=== PATIENT | male | born 1955 | race Caucasian/White ===

== ENCOUNTER 2024-02-05 12:24 | Inpatient (IN) | payer MEDICARE, OTHER, SELFPAY ==
[2024-02-05] VITALS (55 sets, daily range): BP systolic 69–119; BP diastolic 41–71; PULSE 70–108; RESP 10–25; TEMP 36.6–37; O2SAT 92–100; BMI 40.6
--- NOTE | ~2024-02-05 | US_ITS ---
EXAMINATION: US venous doppler [facility] DATE: 02/06/2024 08:50 INDICATION: Acute pulmonary embolism. Epigastric abdominal pain. TECHNIQUE: Grayscale ultrasound images without and with compression and Doppler ultrasound images of the bilateral lower extremity veins were obtained. COMPARISON: None. FINDINGS: The visualized portions of right common femoral vein, profunda (deep) femoral vein, femoral vein, pop liteal vein, peroneal veins, posterior tibial veins, and greater saphenous vein outflow are patent. The visualized portions of left common femoral vein, profunda femoral vein, femoral vein, popliteal v ein, peroneal veins, posterior tibial veins, and greater saphenous vein outflow are patent. IMPRESSION: 1. No deep venous thrombosis. Reviewed, dictated and finalized at location A.
--- NOTE | ~2024-02-05 | CT_ITS ---
EXAMINATION: CT brain wo con DATE: 02/05/2024 13:31 INDICATION: Fall with head injury TECHNIQUE: Computed tomography (CT) of the head was performed without intravenous contrast. Sagittal and coronal reconstructions were performed. The mA was adjusted according to patient size. Iterative reconstruction technique was employed. The dose-length product was 605.33 mGy-cm. COMPARISON: head CT dated 06/01/2019 FINDINGS: No fracture. No acute intracranial hemorrhage, acute infarction or abnormal extra axial fluid collect ion. There is mild scattered white matter hypoattenuation consistent with chronic small vessel ischem ic disease. Symmetric prominence of the sulci and and subarachnoid spaces overlying the convexities c onsistent with mild to moderate age-appropriate diffuse cerebral volume loss. Ventricles are normal a nd symmetric. No mass/mass effect. The orbits, paranasal sinuses and mastoid air cells are normal. IMPRESSION: 1. No fracture or acute intracranial process. 2. Age-related changes including mild to moderate diffuse volume loss and mild scattered white matter hypoattenuation consistent with chronic small vessel ischemic disease. Reviewed, dictated and finalized at location A. IMPRESSION: 1. No fracture or acute intracranial process. 2. Age-related changes including mild to moderate diffuse volume loss and mild scattered white matter hypoattenuation consistent with chronic small vessel isc hemic disease.
--- NOTE | ~2024-02-05 | XR_ITS ---
EXAMINATION: XR chest 1V portable DATE: 02/05/2024 13:48 INDICATION: Epigastric abdominal pain. TECHNIQUE: A single frontal view of the chest was obtained on 2 radiographs. COMPARISON: Chest CT 02/05/2024 FINDINGS: There is mild elevation of right hemidiaphragm. No pneumonia, pleural effusion, or pneumoth orax. The heart size is normal. IMPRESSION: 1. No acute cardiopulmonary disease. Reviewed, dictated and finalized at location E.
--- NOTE | ~2024-02-05 | US_ITS ---
EXAMINATION: US renal BI DATE: 02/06/2024 16:45 INDICATION: Elevated creatinine TECHNIQUE: Multiple ultrasound grayscale images of the kidneys were obtained. COMPARISON: 06/02/2018 FINDINGS: The right kidney measures 9.7 x 5.9 x 5.3 cm. The left kidney measures 10.2 x 5.7 x 5.6 cm. The kidne ys demonstrate normal echogenicity. There is no hydronephrosis in either kidney. No stones identifie d. The bladder is normal. IMPRESSION: 1. Normal kidneys without hydronephrosis. Reviewed, dictated and finalized at location B.
--- NOTE | ~2024-02-05 | XR_ITS ---
EXAMINATION: XR chest port-a-cath/central DATE: 02/05/2024 19:29 INDICATION: Central line placement. TECHNIQUE: A single frontal view of the chest was obtained. COMPARISON: Chest view at 1:44 PM, chest CT 02/05/2024 FINDINGS: There is no pneumonia, pleural effusion, or pneumothorax. The heart size is normal. A right internal jugular central venous catheter is seen with tip in the superior vena cava. IMPRESSION: 1. Central line tip in the superior vena cava. Reviewed, dictated and finalized at location E.
--- NOTE | ~2024-02-05 | CT_ITS ---
EXAMINATION: CTA chest abdomen pelvis DATE: 02/05/2024 13:31 INDICATION: Undifferentiated hypotension. Epigastric pain. TECHNIQUE: Computed tomographic angiography (CTA) of the chest, abdomen and pelvis was performed with 100 cc of Omnipaque-350 intravenous contrast. Additional 3D reconstructions utilizing rotating maxim um intensity projection (MIP) were performed. Automated exposure control and iterative reconstruction technique were employed. The dose-length product was 1797.41 mGy-cm. COMPARISON: None FINDINGS: Chest: There is diffuse mild bronchial wall thickening with some mucous plugging in the bilateral lower lobe s. Branching bronchocele in the right middle lobe. Pulmonary embolism in the posterior basilar segmen nicole pulmonary artery of the left lower lobe. Dependent groundglass opacities in the bilateral upper a nd lower lobes, the latter with associated volume loss consistent with atelectasis. Heart size is nor mal. Atherosclerotic coronary artery calcific location. No leftward bowing of the ventricular septum to suggest heart strain. Thoracic aorta is normal in caliber with no dissection. No pathologically en larged thoracic lymphadenopathy. Mild to moderate thoracic spondylosis with bridging osteophytes at m ultiple levels consistent with diffuse idiopathic skeletal hyperostosis (DISH). Abdomen and pelvis: Cholecystectomy clips the gallbladder fossa. Liver, spleen, pancreas, bilateral adrenal glands and ki dneys are normal. There is moderate colonic diverticulosis with a sigmoid and descending colon predom inance without adjacent inflammatory change to suggest diverticulitis. Small bowel and appendix are n ormal. Supraumbilical midline surgical scar with several associated midline ventral hernias occur bot h cephalad and caudal to a prior ventral hernia mesh repair. One of the hernias located caudal to the mesh repair contains a short segment of nonobstructed small bowel. A small portion anterior wall of an additional loop of nonobstructed small bowel also extends to a tiny ventral hernia just to left of midline also below the level of the mesh repair. Remainder of the ventral hernias along with a small umbilical hernia containing fat. Bladder is normal. Bilateral small fat-containing inguinal hernias. No free intraperitoneal gas or fluid. No pathologically enlarged abdominal or pelvic lymphadenopathy . There is calcified atherosclerosis of the normal caliber abdominal aorta and many of the other aleta ade. No dissection. 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 This appears to occur from extrinsic compression from the hany of the diaphragm consistent wi th arcuate syndrome. Mild lumbar spondylosis and mild to moderate bilateral hip osteoarthritis. IMPRESSION: 1. Pulmonary embolism in the posterior basilar segmental pulmonary artery of the left lower lobe. Dr. Ovalles discussed these findings with Dr. Mckeon at 2:00 PM. 2. Normal caliber aorta with no dissection. 3. 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 4. Multiple small ventral hernias, several containing fat and a couple located caudal to ventral alison ia mesh repair containing small portions of nonobstructed small bowel. Reviewed, dictated and finalized at location A. IMPRESSION: 1. Pulmonary embolism in the posterior basilar segmental pulmonary artery of th e left lower lobe. Dr. Ovalles discussed these findings with Dr. Mckeon at 2:0 0 PM. 2. Normal caliber aorta with no dissection. 3. 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
[2024-02-05 12:30] LABS: Glucose Point of Care 348 mg/dl (65-105)
--- NOTE | 2024-02-05 12:52 | ECG_ITS ---
Test Date: 2024-02-05 12:55:53 Measurements Intervals [place] Rate: 105 P: 17 TN: 166 QRS: 56 QRSD: 102 T: 53 QT: 317 QTc: 419 Interpretive Statements SINUS TACHYCARDIA CONSIDER PREVIOUS INFERIOR WALL INFARCTION ABNORMAL RHYTHM ECG No previous ECG available for comparison Electronically Signed On 02-06-2024 07:15:18 CDT by Rasheed Perez M.D.
[2024-02-05] MEDS: SODIUM CHLORIDE 0.9% IV 1,000 ML 999 ML IV CONT ×3 (13:03→14:25)
[2024-02-05 13:09] LABS: Basophils Percent Auto 0.5 % (0.2-1.2); Eosinophils Absolute Auto 0.3 K/mm3 (0-0.3); Eosinophils Percent Auto 3.5 % (0-4.4); Hematocrit 44.1 % (42.0-52.0); Hemoglobin 14.5 g/dL (14.0-18.0); Immature Granulocyte Absolute 0.03 K/mm3 (0.00-0.031); Immature Granulocyte Percent A 0.4 % (0-0.5); Lymphocytes Absolute Auto 1.09 K/mm3 (0.9-3.2); Lymphocytes Percent Auto 13.8 % (18.3-44.2); Mean Corpuscular HGB Conc 32.9 g/dl (32-36); Mean Corpuscular Hemoglobin 29.8 pg (26-34); Mean Corpuscular Volume 90.6 fl (80-100); Mean Platelet Volume 10.1 fl (7.4-10.4); Monocytes Absolute Auto 0.6 K/mm3 (0.1-0.6); Monocytes Percent Auto 7.8 % (2.6-8.5); Neutrophils Absolute Auto 5.9 K/mm3 (1.3-6.7); Platelet Count Result 168 k/mm3 (150-375); Red Blood Count 4.87 M/mm3 (4.6-6.20); Red Cell Distribution Width 15.6 % (11.5-14.5); White Blood Count 7.9 K/mm3 (4.5-10.0)
[2024-02-05 13:20] LABS: Prothrombin Time 13.5 Seconds (11.1-14.7)
[2024-02-05 13:21] LABS: Alanine Aminotransferase 15 U/L (6-50); Albumin Level 4.7 g/dL (3.5-5.1); Alkaline Phosphatase 96 U/L (38-126); Anion Gap 15 mmol/L (4-12); Aspartate Amino Transferase 19 U/L (17-59); Bilirubin,Total 1.1 mg/dL (0.2-1.3); Blood Urea Nitrogen 39 mg/dL (9-20); Calcium 9.6 mg/dL (8.4-10.2); Carbon Dioxide 19 mmol/L (22-30); Chloride 102 mmol/L (98-107); Estimated CRCL calculation 38 ml/min; Estimated Glomerular Filt Rate 31; Glucose 318 mg/dL (65-110); Lipase 172 U/L (23-300); Potassium 3.9 mmol/L (3.4-5.0); Sodium 136 mmol/L (137-145)
[2024-02-05 13:21] LABS: Partial Thromboplastin Time 24.5 Seconds (22.3-36.8)
[2024-02-05 13:30] LABS: Troponin I < 0.012 ng/mL (0.000-0.034)
--- NOTE | 2024-02-05 13:30 | ED.GENADULT ---
HPI - General Adult General Chief complaint: Unspecified Stated complaint: im in a cloud Time Seen by Provider: 02/05/24 12:49 Source: patient and family () Mode of arrival: ambulatory Limitations: no limitations History of Present Illness HPI narrative: Patient presents with complaint that he felt in a cloud. He took 42 hemoglobins (RN thinks he meant Humalog) because his blood sugar this morning about 10 30 was 408. He denies any chest pain. He did have a syncopal event and fell while in the parking lot. not in any anticoagulation other than 81 mg aspirin. He is lost consciousness and muscle tone and struck his head in the process. He also hit his right elbow where he has an abrasion. He did report upon arrival to the emergency department that he is now complaining of some epigastric abdominal pain. He has a headache from striking his head. He has a history of hypertension for which he is on lisinopril and hydrochlorothiazide. Related Data Home Medications Medication Instructions Recorded Confirmed allopurinol 300 mg tablet 300 mg DAILY 02/05/24 02/06/24 aspirin 81 mg chewable tablet 81 mg PO DAILY 02/05/24 02/06/24 atorvastatin 40 mg tablet 40 mg HS 02/05/24 02/06/24 cyanocobalamin (vitamin B-12) 5,000 mcg PO DAILY 02/05/24 02/06/24 1,000 mcg tablet (Vitamin B-12) dapagliflozin propanediol 10 mg 10 mg DAILY 02/05/24 02/06/24 tablet (Farxiga) duloxetine 60 mg capsule,delayed 60 mg PO DAILY 02/05/24 02/06/24 release exenatide microspheres 2 mg/0.65 2 mg subcut WEEKLY 02/05/24 02/06/24 mL subcutaneous pen injector gabapentin 300 mg capsule 300 mg TID 02/05/24 02/06/24 hydrochlorothiazide 25 mg tablet 25 mg DAILY 02/05/24 02/06/24 insulin glargine-yfgn 100 unit/mL 30 unit subcut HS 02/05/24 02/06/24 (3 mL) subcutaneous pen (Semglee (insulin glargine-yfgn) Pen) insulin lispro 100 unit/mL See Rx Instructions .Route .COMPLEX 02/05/24 02/06/24 subcutaneous solution (Humalog U-100 Insulin) lisinopril 20 mg tablet 20 mg PO DAILY 02/05/24 02/06/24 metformin 500 mg tablet,extended 500 mg PO BID 02/05/24 02/06/24 release 24 hr tamsulosin 0.4 mg capsule 0.4 mg PO DAILY 02/05/24 02/06/24 Allergies Allergy/AdvReac Type Severity Reaction Status Date / Time celecoxib [From Celebrex] Allergy Intermediate Rash Verified 02/05/24 16:57 morphine AdvReac Unknown Agitated Verified 02/05/24 16:56 PMFSH Past Medical History Medical History Arthritis Cataracts, bilateral Chronic kidney disease Gout Hernia HLD (hyperlipidemia) HTN (hypertension) Insulin dependent diabetes mellitus Surgical History Surgical History History of cholecystectomy History of hernia surgery Family History Family History Mother Family history of Alzheimer's disease Family history of congestive heart failure Father Acute myocardial infarction Other Diabetes mellitus Family history of malignant neoplasm Hypertension Social History Social History Smoking packs per day: 2 Smoking cigarettes per day: 40.0 Years smoked: 25 Smoking pack-years: 50.00 Smoking status: Former smoker Tobacco type: cigarettes Smoking end date: 08/15/03 Alcohol intake: current Do You Feel Safe in your Home?: Yes Lack of Transportation: No Lack of Food: Never True Current Housing: I Have Housing Concerned About Future Housing: No Difficulty Paying Gas/Electric Bills: No Difficulty Paying for Meds: No Currently Unemployed: No Education: Associate Degree Difficulty w/ Childcare or Family Care: No Spiritual care concerns: No Exam Narrative: GENERAL: Well-appearing, well-nourished, and in no acute distress. HEAD: Normocephalic, atraumatic. EYES: Non injected, non icteric
[2024-02-05 14:17] LABS: Alveolar/Arterial O2 Gradient 25.9 mmHg; Base Excess ABG -7.8 mEq/l (+/-2.0); Fractional Inspired Oxygen 21 %; HCO3 ABG 17.1 mEq/l (22.0-26.0); Oxygen Content ABG 18.1 %vol (16.0-22.0); Oxygen Saturation ABG 95.7 % (95.0-100.0); Oxyhemoglobin 94.1 % THb (90.0-100.0); PCO2 ABG 33.4 mmHg (35.0-45.0); PO2 ABG 83.8 mmHg (80.0-100.0); PO2 FiO2 Ratio Arterial Blood 3.99 %; Total Hemoglobin 13.6 g/dL (12.0-18.0); pH ABG 7.327 (7.350-7.450)
[2024-02-05 14:18] LABS: Device ROOM AIR; Modified Allen's Test Pass; Site Drawn LEFT RADIAL
[2024-02-05 14:18] LABS: Beta-Hydroxybutyrate/Acetoacetate 0.14 mmol/L (0.02-0.27)
[2024-02-05 14:31] LABS: Glucose Point of Care 252 mg/dl (65-105)
[2024-02-05] MEDS: INSULIN HUMAN REGULAR (*BKC) 100 UNITS/ML 6 UNITS IV PUSH (14:36)
[2024-02-05 15:11] LABS: Procalcitonin 0.3 ng/mL
[2024-02-05 15:20] LABS: Appearance Urine Clear (Clear); Bacteria Urine None Seen /hpf; Bilirubin Urine Negative (Negative); Blood Urine Non-Hemolyzed Trace (Negative); Color Urine Yellow (Yellow); Glucose Urine UA 3+ mg/dL (Negative); Ketones Urine Negative (Negative); Leukocyte Esterase Ur Negative LEU/UL (Negative); Need Manual Microscopic Reviewed; Nitrate Urine Negative (Negative); Protein Urine Negative (Negative); Squamous Epithelial Cell Urine None Seen /hpf (Few); Urobilinogen Urine 0.2 mg/dL (<2.0); WBC Urine 0-5 /hpf (0-3)
[2024-02-05 15:24] LABS: Add Urine Microscopic? YES
[2024-02-05 15:39] LABS: Glucose Point of Care 191 mg/dl (65-105)
--- NOTE | 2024-02-05 15:49 | PM.IMHP ---
H&P: HPI History of Present Illness Date/Time: 02/05/24 15:49 Chief Complaint: Hyperglycemia, Fall Narrative: 68 y/o M presents here with hyperglycemia with PMH of DM, HTN, HLD, and CKD. The patient presents here from home for further evaluation of hyperglycemia and ground level fall. He reports his glucose checked this morning showed a sugar of 408, he self administered 42 units of Humalog at 10:30 a.m., and glucose upon arrival to the emergency department was 348. While coming into the emergency department he had a ground level fall in the parking lot. The patient reports that he had a syncopal event. He reports he was walking when he then woke up on the ground (face up). He reports loss of consciousness for less than 1 minute. 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 States he fell more so onto his right side/straight back and scraped his right elbow. Post fall has a mild headache that is described as occipital, dull, 5/10,nonradiating, constant, and has since resolved. Currently denying chest pain, shortness of breath, fever, body aches, chills, cough. Recently has had lisinopril reduced and HCTZ added. Endorses dyspnea with exertion that has been ongoing for the past 2 weeks, mild polyuria, mild polydipsia, clammy/diaphoretic (today during anabaptism while he was standing), and fatigue. No recent surgeries, no long car rides/travel, and he is a former smoker (25 years, 2 PPD, cessation 28 years ago). Initial VS at presentation: 97.9? F, HR 105, RR 20, 80/52, and 95% on RA. ED workup showed: No leukocytosis, no anemia, coags normal, pH 7.327, sodium 136, gap 15, creatinine 2.1 and GFR 31, POC initial glucose 348, initial troponin negative, beta hydroxy 0.14, and lactic acid 4.0. UA showed 3+ glucose and 3-5 RBC, otherwise unremarkable. CT head showed no acute findings and age related changes. CXR showed no acute cardiopulmonary disease. CTA of the chest/abdomen/pelvis showed AP involving the posterior basilar segmental pulmonary artery of the lower lobe, normal caliber aorta without dissection, stiff ear stenosis of the origin of the celiac access consistent with arcuate syndrome, and multiple small ventral hernias several containing fat and a couple containing nonobstructed small bowel. Review of Systems Review of Systems: All systems reviewed & are unremarkable except as noted in HPI and below [facility] Past Medical History Medical History (Updated 02/05/24 @ 21:17 by Fauzia Grace APRN) Arthritis Cataracts, bilateral Chronic kidney disease Gout Hernia HLD (hyperlipidemia) HTN (hypertension) Insulin dependent diabetes mellitus Surgical History Surgical History (Updated 02/05/24 @ 20:02 by Fauzia Grace APRN) History of cholecystectomy Family History Family History Mother Family history of Alzheimer's disease Family history of congestive heart failure Father Acute myocardial infarction Other Diabetes mellitus Family history of malignant neoplasm Hypertension Social History Social History Smoking packs per day: 2 Smoking cigarettes per day: 40.0 Years smoked: 25 Smoking pack-years: 50.00 Smoking status: Former smoker Tobacco type: cigarettes Smoking end date: 08/15/03 Alcohol intake: current Do You Feel Safe in your Home?: Yes Lack of Transportation: No Lack of Food: Never True Current Housing: I Have Housing Concerned About Future Housing: No Difficulty Paying Gas/Electric Bills: No Difficulty Paying for Meds: No Currently Unemployed: No Education: Associate Degree Difficulty w/ Childcare or Family Care: No Spiritual care concerns: No Meds Home Medications and Allergies Home Medications Medication Instructions Recorded Confirmed Type allopurinol 300 mg tablet 300 mg DAILY 02/05/24 02/05/24 History aspirin 81 mg chewable tablet 81 mg PO DAILY 02/05/24
[2024-02-05 16:06] LABS: Reflex Lactic Acid Yes or No Add Lactic
--- NOTE | 2024-02-05 16:23 | PC.NURSE ---
Tried to adjust patient's bedsheets and he states Im comfortable and like to coolness of the bed . Patient A&Ox4.
[2024-02-05 16:33] LABS: Anion Gap 8 mmol/L (4-12); Blood Urea Nitrogen 42 mg/dL (9-20); Calcium 8.8 mg/dL (8.4-10.2); Carbon Dioxide 22 mmol/L (22-30); Chloride 106 mmol/L (98-107); Estimated CRCL calculation 36 ml/min; Estimated Glomerular Filt Rate 30; Glucose 148 mg/dL (65-110); Potassium 4.4 mmol/L (3.4-5.0); Sodium 136 mmol/L (137-145)
[2024-02-05 17:45] LABS: Lactic Acid 1.8 mmol/L (0.7-2.0)
--- NOTE | 2024-02-05 18:15 | ADMGEN ---
This patient, Esteban Sultana, was admitted to Intensive Care Unit-8 at 1634. Patient/family oriented to hospital policies and general routines including ID bracelet, bed and alarms, visiting hours, pain management, procedures, bathroom and other care routines, personal items, smoking policy, room service/diet, and visiting hours. Information on how to activate the Rapid Response Team has been discussed. Patient/Family are encouraged to report perceived risks to care and to ask questions if they do not understand what they are told or what they should do.
[2024-02-05 19:43] LABS: MRSA (PCR) NOT DETECTED (NOT DETECTE)
--- NOTE | 2024-02-05 19:50 | ED.PROCEDURE ---
Procedures Central Line Placement Right IJ: Central Line Date: 02/05/24 Central Line Time: 19:50 Discussed w/ the patient/family/POA,the placement of a central venous catheter, including its clinical necessity/indication & associated potential risks, benifits and alternatives.: Yes The patient/family/POA understand(s) and acknowledge(s) the need to proceed with central venous catheter insertion as an important element of the patient's clinical management.: Yes Consent: I have discussed with the patient and/or surrogate, the non-emergent placement of a central venous catheter, including its clinical necessity/indication and associated potential risks and complications. The patient and/or surrogate understand(s) and acknowledge(s) the need to proceed with central venous catheter insertion as an important element of the patient's clinical management. Time Out Performed: Yes Patient Position: trendelenburg Patient placed on monitor/pulse ox: Yes Provider Prep: mask, sterile gown, sterile gloves, Max. sterile barrier precautions, cap and hand hygiene with conventional soap/water or alcohol based hand rub Central line prep: 2% Chlorhexidine scrub Local anesthesia used: lidocaine 1% Central line lumen inserted: triple Length (cm): 16 Depth of Insertion (cm): 16 Post Procedure: sutured in place, good blood return, all ports aspirated, flushed, capped, transparent dressing, antimicrobial product and securement product Post procedure x-ray: tip of catheter in good position and no pneumothorax seen Patient tolerated procedure: well Complications: none
[2024-02-05] MEDS: CENTRAL LINE FLUSH 10 ML IV PUSH (20:27)
[2024-02-05] MEDS: NOREPINEPHRINE 8 MG/D5W 250 ML 8 MG/250 ML BAG 9.38 MG IV CONT (20:30)
[2024-02-05 20:53] LABS: Troponin I < 0.012 ng/mL (0.000-0.034)
[2024-02-05] MEDS: LACTATED RINGERS 1,000 ML 999 ML IV CONT (21:33)
[2024-02-05] MEDS: HEPARIN SODIUM 5,000 UNITS/ML VIAL 7000 UNITS IV PUSH (22:29)
[2024-02-05] MEDS: HEPARIN SOD/D5W 100 UNITS/ML 25,000 UNITS/250 ML BAG 15 UNITS IV CONT (22:30)
[2024-02-05 22:51] LABS: Glucose Point of Care 219 mg/dl (65-105)
[2024-02-05] MEDS: SODIUM CHLORIDE 0.9% IV 1,000 ML 500 ML IV CONT (23:18)
[2024-02-06] VITALS (28 sets, daily range): BP systolic 82–138; BP diastolic 53–88; PULSE 75–111; RESP 13–97; TEMP 36.9–37.1; O2SAT 92–99; BMI 41.5
--- NOTE | 2024-02-06 | ECHO_ITS ---
Patient Info Name: Esteban Sultana Age: 68 years : 1955 Gender: Male Ht: 68 in Wt: 264 lbs BSA: 2.45 m2 HR: 77 bpm BP: 114 / 59 mmHg Heart Rhythm: Sinus Rhythm Technical Quality: Fair Exam Date: 02/06/2024 9:09 AM Exam Location: Echo Lab Patient Status: Inpatient Admit Date: 02/05/2024 Staff Ordering Physician: Fauzia Grace APRN Conduit Helper: Ro Sparrow RDCS Attending Provider: Vinicio Mendoza MD Referring Physician: Lesly LONGORIA; Exam Type: CA echo dop color flow w con Study Info Indications I26.99 - Other pulmonary embolism without acute cor pulmonale Complete two-dimensional, color flow and Doppler transthoracic echocardiogram is performed with contrast to opacify the left ventricle and to improve the deliniation of the left ventricle endocardial borders. Contrast/Agitated Saline Contrast/Ag. Saline: Definity Amount: 2.00 ml IV Access Condition: patent with no signs of infiltration Summary 1. Left ventricular chamber dimension is normal. 2. Left ventricular systolic function is normal, estimated at 60-65%. 3. The left ventricular diastolic function is grade I diastolic dysfunction. 4. Right ventricular systolic function is normal. 5. There is mild tricuspid valve regurgitation. Left Ventricle Left ventricular chamber dimension is normal. Left ventricular systolic function is normal, estimated at 60-65%. There is no increased left ventricular wall thickness. The left ventricular diastolic function is grade I diastolic dysfunction. Right Ventricle Right ventricular chamber dimension is normal. Right ventricular systolic function is normal. Left Atria Left atrial chamber dimension is normal. Right Atria Right atrial chamber dimension is normal. Atrial Septum Intact interatrial septum visualized by color flow imaging. Aortic Valve The aortic valve is probable trileaflet. There is no aortic valve stenosis. There is no aortic valve regurgitation. There is mild aortic valve calcification. Pulmonic Valve The pulmonic valve is not well visualized. There is no pulmonic regurgitation. Mitral Valve The mitral valve has normal leaflets. There is trace mitral valve regurgitation. The mitral valve annulus is mildly calcified. Tricuspid Valve There is mild tricuspid valve regurgitation. Pericardium/Pleural The pericardium appears epicardial fat pad. There is no pericardial effusion. Inferior Vena Cava Normal inferior vena cava with >50% collapse upon inspiration consistent with normal right atrial pressure, 3 mmHg. Aorta The aortic root size at the sinus of Valsalva is normal. Left Ventricular Outflow Tract Name Value Normal LVOT 2D LVOT Diameter 1.95 cm LVOT Doppler LVOT Peak Gradient 5 mmHg LVOT Mean Gradient 3 mmHg LVOT VTI 20.61 cm LVOT VTI/AV VTI Ratio 0.60 LVOT Stroke Volume 61.66 ml LVOT CO 4.97 l/min LVOT CI 2.03 L/min/m2 Pulmonic Valve
[2024-02-06 01:05] LABS: Glucose Point of Care 185 mg/dl (65-105)
[2024-02-06] MEDS: SODIUM CHLORIDE 0.9% IV 1,000 ML 100 ML IV CONT (01:18)
[2024-02-06] MEDS: CENTRAL LINE FLUSH 10 ML IV PUSH ×3 (03:40→19:50)
[2024-02-06 03:52] LABS: Basophils Percent Auto 0.3 % (0.2-1.2); Eosinophils Absolute Auto 0.2 K/mm3 (0-0.3); Eosinophils Percent Auto 4.2 % (0-4.4); Hematocrit 36.3 % (42.0-52.0); Hemoglobin 11.8 g/dL (14.0-18.0); Immature Granulocyte Absolute 0.01 K/mm3 (0.00-0.031); Immature Granulocyte Percent A 0.2 % (0-0.5); Lymphocytes Absolute Auto 1.05 K/mm3 (0.9-3.2); Lymphocytes Percent Auto 18.2 % (18.3-44.2); Mean Corpuscular HGB Conc 32.5 g/dl (32-36); Mean Corpuscular Hemoglobin 29.9 pg (26-34); Mean Corpuscular Volume 92.1 fl (80-100); Mean Platelet Volume 9.9 fl (7.4-10.4); Monocytes Absolute Auto 0.5 K/mm3 (0.1-0.6); Neutrophils Percent Auto 69.1 % (45.5-73.1); Platelet Count Result 102 k/mm3 (150-375); Red Blood Count 3.94 M/mm3 (4.6-6.20); Red Cell Distribution Width 15.7 % (11.5-14.5); White Blood Count 5.8 K/mm3 (4.5-10.0)
[2024-02-06] MEDS: AZITHROMYCIN 500 MG/NS 250 ML 500 MG/250 ML BAG 250 MG IVPB (03:57)
[2024-02-06 03:59] LABS: Hemoglobin A1C 9.6 % (<5.7)
[2024-02-06 04:03] LABS: INR 1.1; Prothrombin Time 14.9 Seconds (11.1-14.7)
[2024-02-06 04:04] LABS: Alanine Aminotransferase 10 U/L (6-50); Albumin Level 3.3 g/dL (3.5-5.1); Alkaline Phosphatase 82 U/L (38-126); Anion Gap 8 mmol/L (4-12); Aspartate Amino Transferase 16 U/L (17-59); Bilirubin,Total 0.9 mg/dL (0.2-1.3); Blood Urea Nitrogen 40 mg/dL (9-20); Calcium 8.2 mg/dL (8.4-10.2); Carbon Dioxide 19 mmol/L (22-30); Chloride 109 mmol/L (98-107); Estimated CRCL calculation 41 ml/min; Estimated Glomerular Filt Rate 33; Glucose 192 mg/dL (65-110); Magnesium 1.9 mg/dL (1.6-2.3); Partial Thromboplastin Time 111.7 Seconds (22.3-36.8); Phosphorus 3.9 mg/dL (2.5-4.5); Potassium 3.9 mmol/L (3.4-5.0); Sodium 136 mmol/L (137-145)
[2024-02-06 05:16] LABS: Glucose Point of Care 187 mg/dl (65-105)
--- NOTE | 2024-02-06 08:26 | WPDCNINT ---
Assessment and Plan Assessment and plan (1) Hypotension: Code(s): I95.9 - Hypotension, unspecified Status: Acute Assessment and Plan: Patient on presentation was found to be hypotensive with elevated lactic acid level. He was given IV fluids without significant improvement. He had no obvious source of infection at that time apart from minor changes in the CT scan. CT scan also showed a pulmonary embolism which was small. During my discussion with the ER physician it was decided that we will administer tPA unless there was a contraindication and if patient understood the risks and benefits of it. Since patient was on Levophed decision was made to place central venous catheter before administration of tPA. Later ER physician reassessed the patient and felt the patient was hypovolemic has decision was made to give additional fluids and withhold tPA. I was not notified of these changes or was involved this discussion. Patient did improve with IV fluids and Levophed was weaned off overnight. On CT scan pulmonary embolism does appear small and is only in posterior basilar segment pulmonary artery at the left lower lobe. Patient also is on room air and not significantly tachycardia or hypoxic. Lactic acid level has normalized At this point will continue Levophed titration, I will hold further IV fluids as patient has received close to 5 L of IV fluids prevent further volume overload. Heparin infusion will be continue. Echo will be checked. Continue antibiotics as below (2) Pulmonary embolism: Qualifiers: Acute cor pulmonale presence: unspecified Chronicity: acute Pulmonary embolism type: unspecified Qualified Code(s): I26.99 - Other pulmonary embolism without acute cor pulmonale Code(s): I26.99 - Other pulmonary embolism without acute cor pulmonale Status: Acute Assessment and Plan: Continue heparin infusion Check echo Lower extremity Dopplers ordered and pending (3) Sepsis: Code(s): A41.9 - Sepsis, unspecified organism Status: Acute Assessment and Plan: On presentation patient met criteria for sepsis. No evidence of source of overwhelming infection. UA was negative, procalcitonin was on the lower side and WBC was normal. Chest CT does suggest area of mild bronchial wall thickening with some mucus plugging in bilateral lower lobes. 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 Appears to be asymptomatic at this time as patient denies any abdominal pain related to it. Discussed results with the patient and recommended follow-up as an outpatient and referral for General surgery (5) Diabetes mellitus with hyperglycemia: Qualifiers: Diabetes mellitus terminal manager insulin use: with fpc use Diabetes mellitus type: type 2 Qualified Code(s): E11.65 - Type 2 diabetes mellitus with hyperglycemia; Z79.4 - oysterman (current) use of insulin Code(s): E11.65 - Type 2 diabetes mellitus with hyperglycemia Status: Acute Assessment and Plan: Patient presented with elevated blood sugars. His beta hydroxybutyrate was normal. It appears that his diabetes is poorly controlled from history high blood sugars at home. Blood glucose improved with IV fluids insulin Resume diabetic diet Poorly controlled diabetes Consult para educator and dietitian Resume Lantus at 35 units. Continue sliding scale Adjust accordingly (6) Elevated serum creatinine: Code(s): R79.89 - Other specified abnormal findings of blood chemistry Status: Acute Assessment and Plan: Patient presented
[2024-02-06] MEDS: INSULIN GLARGINE (*BKC) 100 UNITS/ML 35 UNITS SUB-Q (09:00)
[2024-02-06] MEDS: ASPIRIN 81 MG ENTERIC TABLET PO (09:00)
[2024-02-06] MEDS: ATORVASTATIN 40 MG TABLET PO (09:00)
[2024-02-06] MEDS: INSULIN ASPART (*BKC) 100 UNITS/ML SUB-Q ×4 (09:00→16:45)
[2024-02-06] MEDS: PANTOPRAZOLE SODIUM IV 40 MG VIAL IV PUSH (09:00)
[2024-02-06] MEDS: TAMSULOSIN HCL 0.4 MG CAPSULE PO (09:00)
[2024-02-06 09:07] LABS: Creatine Kinase 142 U/L (55-170)
[2024-02-06 09:13] LABS: Glucose Point of Care 239 mg/dl (65-105)
[2024-02-06 09:29] LABS: Creatinine Urine 100.6 mg/dL
[2024-02-06 09:35] LABS: Sodium Urine Random 80 meq/L
[2024-02-06 10:59] LABS: Partial Thromboplastin Time 61.6 Seconds (22.3-36.8)
[2024-02-06] MEDS: PERFLUTREN LIPID MICROSPHERES 1.5 ML VIAL DILUTED TO 10 ML TOTAL VOLUME IV PUSH (11:04)
--- NOTE | 2024-02-06 11:05 | IVDEFINITY ---
Prior to administration of IV Definity the patient was educated on the risks and benefits of the imaging enhancing agent including potential adverse side effects. The patient verbalized understanding. Allergies were verified. No exclusion criteria were identified and at least one of the following inclusion criteria were met: 1) physician request, 2) patient technically difficult to image (per the [place] [employer] guidelines of two or more segments not discernable within the apical view), or 3) questionable left ventricular function. ?
[2024-02-06] MEDS: HEPARIN SODIUM 5,000 UNITS/ML VIAL 3500 UNITS IV PUSH (11:13)
--- NOTE | 2024-02-06 11:44 | PCDIET ---
Physician consult for DM. See Nutritional Teaching Intervention.
--- NOTE | 2024-02-06 11:45 | PM.CNNEP ---
Assessment and Plan Assessment and plan (1) Chronic kidney disease: Qualifiers: Chronic kidney disease stage: unspecified stage Qualified Code(s): N18.9 - Chronic kidney disease, unspecified Code(s): N18.9 - Chronic kidney disease, unspecified Status: Chronic Assessment and Plan: The patient has chronic kidney disease. His creatinine is around 2. This has stayed relatively stable during the hospital stay. Most likely his CKD is from hypertension and diabetes. He also has hyperlipidemia and so could have some vascular disease in the kidneys as well. He does have untreated sleep apnea which could affect the kidneys as well. he received contrast as well. So far he still seem to be making urine. rhabdomyolysis could always be occurring. Will check a CK. Obstruction could always be occuring as well. Will check an ultrasound There other causes of kidney disease as well including glomerulonephritis, interstitial nephritis, vascular disease but I think these are all less likely. To evaluate this will get renal ultrasound, urine electrolytes, CPK will try to get some records from his primary care doctor (2) Diabetes mellitus with hyperglycemia: Qualifiers: Diabetes mellitus ad terminal makeup operator insulin use: with ad terminal makeup operator use Diabetes mellitus type: type 2 Qualified Code(s): E11.65 - Type 2 diabetes mellitus with hyperglycemia; Z79.4 - care home (current) use of insulin Code(s): E11.65 - Type 2 diabetes mellitus with hyperglycemia Status: Acute Assessment and Plan: on insulin and Accu-Cheks. Per hospitalist. (3) Pulmonary embolism: Qualifiers: Acute cor pulmonale presence: unspecified Chronicity: acute Pulmonary embolism type: unspecified Qualified Code(s): I26.99 - Other pulmonary embolism without acute cor pulmonale Code(s): I26.99 - Other pulmonary embolism without acute cor pulmonale Status: Acute Assessment and Plan: He is on anticoagulants (4) HTN (hypertension): Code(s): I10 - Essential (primary) hypertension Status: Acute Assessment and Plan: blood pressure is too low for blood pressure medication right now. (5) Hypotension: Code(s): I95.9 - Hypotension, unspecified Status: Acute Assessment and Plan: He received IV fluids. Blood pressure is doing better History of Present Illness Reason for Consult Consult date: 02/06/24 Chief Complaint Chief complaint: PE with Hypotension History of Present Illness Narrative: Esteban is a very pleasant 68-year-old gentleman who has multiple medical problems including hypertension, diabetes, high body mass index, sleep apnea but does not use a machine, chronic kidney disease, arthritis, gout, hyperlipidemia. The patient came in the hospital because he fell. He says he fainted. He woke up on the ground. His sugar was very high at 408. He had been at his grand Children's baseball games on Tuesday and Tuesday. The patient was seen in the emergency room. He had low blood pressure. He was felt to be dry. The patient had a CT angio of the chest which showed pulmonary emboli. He had thrombolytics therapy and is currently on heparin. Patient's hemodynamics improved. His creatinine was high on admission and remained high in spite of improved blood pressure in fluids so renal consultation was requested. The patient did receive contrast with that CT scan. He says that he has known about chronic kidney disease since November. He does not know how long he has had but was told it was chronic then. He sees Dr. Jewell for endocrinology who mentioned this. He placed him on [facility] at that point. He denies any bloody foamy cloudy or smelly urine. No kidney stones or bladder infections. No painful urination. Review of Systems Constitutional: Constitutional: Reports no additional constitutional complaints Eyes: Eyes: Reports
[2024-02-06 11:50] LABS: Glucose Point of Care 269 mg/dl (65-105)
--- NOTE | 2024-02-06 12:54 | PM.IMPN ---
Progress Note: A&P Assessment and Plan (1) Hypotension: Code(s): I95.9 - Hypotension, unspecified Status: Acute Assessment and Plan: Patient on presentation was found to be hypotensive with elevated lactic acid level. Given IV fluids without significant improvement. He had no obvious source of infection but CT scan also showed a pulmonary embolism which was small. Central line placed and Levophed started Initial plan was to administer tPA but decided that patient was hypovolemic as cause of the HoTN so more fluids administered. Suspect hypovolemia related to HCTZ, hyperglycemia with osmotic diuresis. Lactic acid level wsa 4 but now has normalized Weaned off Levophed. Monitor BP closely. Lisinopril, HCTZ remain on hold (2) Pulmonary embolism: Qualifiers: Acute cor pulmonale presence: unspecified Chronicity: acute Pulmonary embolism type: unspecified Qualified Code(s): I26.99 - Other pulmonary embolism without acute cor pulmonale Code(s): I26.99 - Other pulmonary embolism without acute cor pulmonale Status: Acute Assessment and Plan: CTA chest showing PE posterior basilar segmental pulmonary artery LLL. Started on a heparin infusion. Echo ordered. LE venous doppler negative. Contineu Heparin drip. Change to Elquis in the morning if remains stable (3) Sepsis: Code(s): A41.9 - Sepsis, unspecified organism Status: Acute Assessment and Plan: On presentation patient met criteria for sepsis vs SIRS. No evidence of source of overwhelming infection. UA was negative. WBC was normal. PCT 0.3. Chest CT does suggest area of mild bronchial wall thickening with some mucus plugging in bilateral lower lobes so consider PNA. 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 Appears to be asymptomatic at this time as patient denies any symptoms related to it. Patient made aware. Plan for patient to follow-up as an outpatient and referral for General surgery or vascular (5) Diabetes mellitus with hyperglycemia: Qualifiers: Diabetes mellitus laborer marine terminal insulin use: with laborer marine terminal use Diabetes mellitus type: type 2 Qualified Code(s): E11.65 - Type 2 diabetes mellitus with hyperglycemia; Z79.4 - laborer marine terminal (current) use of insulin Code(s): E11.65 - Type 2 diabetes mellitus with hyperglycemia Status: Acute Assessment and Plan: Patient presented with elevated blood sugars. His beta hydroxybutyrate was normal. A1c 9.6 showing his diabetes is poorly controlled from history high blood sugars at home. Blood glucose improved with IV fluids and insulin Continue diabetic diet Consult cyber incident analyst and dietitian Resume Lantus. Continue sliding scale Adjust accordingly (6) Elevated serum creatinine: Code(s): R79.89 - Other specified abnormal findings of blood chemistry Status: Acute Assessment and Plan: Patient presented with creatinine of 2.1. Baseline creatinine is unknown CT scan does not show any stones or hydronephrosis Check CK and urine electrolytes Monitor urine output electrolytes and creatinine Consult nephrology (7) HTN (hypertension): Code(s): I10 - Essential (primary) hypertension Status: Acute Assessment and Plan: Antihypertensive on hold due to hypotension Continue to monitr (8) Dehydration: Code(s): E86.0 - Dehydration Status: Acute Assessment and Plan: Improved with IV fluids. Diabetic diet resumed Hold further IV fluids to prevent volume overload Plan DVT prophylaxis -heparin infusi
[2024-02-06 13:50] LABS: Creatine Kinase 230 U/L (55-170)
[2024-02-06 13:59] LABS: Complement C3 140 mg/dL (88-165)
[2024-02-06 14:02] LABS: Parathyroid Intact 148.9 pg/mL (7.5-53.5)
[2024-02-06 14:22] LABS: Erythrocyte Sedimentation Rate 19 mm/hr (0-20)
[2024-02-06] MEDS: HEPARIN SOD/D5W 100 UNITS/ML 25,000 UNITS/250 ML BAG 15 UNITS IV CONT (16:41)
[2024-02-06 16:52] LABS: Glucose Point of Care 310 mg/dl (65-105)
[2024-02-06 17:53] LABS: Partial Thromboplastin Time 115.6 Seconds (22.3-36.8)
[2024-02-06 18:01] LABS: Creatinine Urine 120.8 mg/dL; Total Protein Urine Random 6 mg/dL; Ur Ttl Prot Creatinine Ratio 0.05 mg/mg (0-0.20); Urea Random Urine 522 MG/DL
[2024-02-06 18:03] LABS: Sodium Urine Random 43 meq/L
[2024-02-06 20:16] LABS: Glucose Point of Care 233 mg/dl (65-105)
[2024-02-07] VITALS (8 sets, daily range): BP systolic 101–142; BP diastolic 58–96; PULSE 70–93; RESP 11–20; TEMP 36.8–37.1; O2SAT 95–98
[2024-02-07 00:33] LABS: Partial Thromboplastin Time 185.1 Seconds (22.3-36.8)
[2024-02-07] MEDS: AZITHROMYCIN 500 MG/NS 250 ML 500 MG/250 ML BAG 250 MG IVPB (04:22)
[2024-02-07] MEDS: CENTRAL LINE FLUSH 10 ML IV PUSH (04:24)
[2024-02-07 04:37] LABS: Hematocrit 34.2 % (42.0-52.0); Hemoglobin 11.2 g/dL (14.0-18.0); Immature Platelet Fraction Pct 1.6 % (0.9-11.2); Mean Corpuscular HGB Conc 32.7 g/dl (32-36); Mean Corpuscular Hemoglobin 30.3 pg (26-34); Mean Corpuscular Volume 92.4 fl (80-100); Mean Platelet Volume 9.7 fl (7.4-10.4); Platelet Count Result 101 k/mm3 (150-375); Red Cell Distribution Width 15.8 % (11.5-14.5); White Blood Count 4.9 K/mm3 (4.5-10.0)
[2024-02-07 04:48] LABS: Alanine Aminotransferase 10 U/L (6-50); Albumin Level 3.2 g/dL (3.5-5.1); Alkaline Phosphatase 81 U/L (38-126); Anion Gap 4 mmol/L (4-12); Aspartate Amino Transferase 18 U/L (17-59); Bilirubin,Total 0.5 mg/dL (0.2-1.3); Blood Urea Nitrogen 36 mg/dL (9-20); Calcium 8.4 mg/dL (8.4-10.2); Carbon Dioxide 22 mmol/L (22-30); Chloride 110 mmol/L (98-107); Estimated CRCL calculation 48 ml/min; Estimated Glomerular Filt Rate 40; Glucose 187 mg/dL (65-110); Magnesium 2.1 mg/dL (1.6-2.3); Phosphorus 3.3 mg/dL (2.5-4.5); Sodium 136 mmol/L (137-145)
--- NOTE | 2024-02-07 07:58 | PM.PNNEP ---
Progress Note: A&P Assessment and Plan (1) Chronic kidney disease: Qualifiers: Chronic kidney disease stage: unspecified stage Qualified Code(s): N18.9 - Chronic kidney disease, unspecified Code(s): N18.9 - Chronic kidney disease, unspecified Status: Chronic Assessment and Plan: The patient has chronic kidney disease. His creatinine is around 2. This has stayed relatively stable during the hospital stay. Most likely his CKD is from hypertension and diabetes. He also has hyperlipidemia and so could have some vascular disease in the kidneys as well. He does have untreated sleep apnea which could affect the kidneys as well. he received contrast as well. So far he still seems to be making urine. CPK is okay. Ultrasound is unremarkable fractional excretion of urea shows dehydration. Most likely he has an element of chronic kidney disease and may or may not have an element of acute kidney injury. He is getting some IV fluids. His blood pressure is better. (2) Diabetes mellitus with hyperglycemia: Qualifiers: Diabetes mellitus half-way insulin use: with half-way use Diabetes mellitus type: type 2 Qualified Code(s): E11.65 - Type 2 diabetes mellitus with hyperglycemia; Z79.4 - prison (current) use of insulin Code(s): E11.65 - Type 2 diabetes mellitus with hyperglycemia Status: Acute Assessment and Plan: on insulin and Accu-Cheks. Per hospitalist. (3) Pulmonary embolism: Qualifiers: Acute cor pulmonale presence: unspecified Chronicity: acute Pulmonary embolism type: unspecified Qualified Code(s): I26.99 - Other pulmonary embolism without acute cor pulmonale Code(s): I26.99 - Other pulmonary embolism without acute cor pulmonale Status: Acute Assessment and Plan: He is on anticoagulants (4) HTN (hypertension): Code(s): I10 - Essential (primary) hypertension Status: Acute Assessment and Plan: blood pressure is too low for blood pressure medication right now. (5) Hypotension: Code(s): I95.9 - Hypotension, unspecified Status: Acute Assessment and Plan: He received IV fluids. Blood pressure is doing better Subjective Date/time seen: 02/07/24 07:58 Interval history: patient feels okay. No chest pain or shortness of Review of Systems Cardiovascular: Cardiovascular: Reports no additional cardiovascular complaints Respiratory: Respiratory: Reports no additional respiratory complaints Gastrointestinal: Gastrointestinal: Reports no additional gastrointestinal complaints Genitourinary: Genitourinary: Reports no additional male genitourinary complaints Exam Narrative: WDWN in NAD skin no rash head ncat lungs clear cor reg no rub abd BS+ nontender and soft ext 1+ bilateral edema. Objective Data Vital Signs Vital Signs: Vital Signs - 24 hr 02/06/24 08:00 02/06/24 08:00 02/06/24 08:00 Temperature 98.5 F Pulse Rate 86 80 81 Respiratory Rate 97 H Blood Pressure 118/75 118/75 Pulse Oximetry 97 Oxygen Delivery 02/06/24 10:00 02/06/24 08:00 02/06/24 10:00 Temperature Pulse Rate 87 86 92 Respiratory Rate 15 Blood Pressure 138/59 L Pulse Oximetry 96 Oxygen Delivery Room Air 02/06/24 10:00 02/06/24 12:00 02/06/24 12:00 Temperature 98.5 F Pulse Rate 86 111 H 92 Respiratory Rate 14 15 Blood Pressure 138/59 L 122/65 Pulse Oximetry 95 96 Oxygen Delivery 02/06/24 14:00 02/06/24 14:00 02/06/24 12:00 Temperature Pulse Rate 93 93 94 Respiratory Rate 17 18 Blood Pressure 115/55 L Pulse Oximetry 95 95 Oxygen Delivery Room Air 02/06/24 16:00 02/06/24 16:00 02/06/24 16:00 Temperature 98.6 F Pulse Rate 87 87 89 Respiratory Rate 19 16 Blood Pressure 106/59 L Pulse Oximetry 94 93 Oxygen Delivery Room Air 02/06/24 12:00 02/06/24 14:00 02/06/24 16:00 Temperature Pulse Rate
[2024-02-07 08:02] LABS: Glucose Point of Care 191 mg/dl (65-105)
[2024-02-07] MEDS: TAMSULOSIN HCL 0.4 MG CAPSULE PO (08:05)
[2024-02-07] MEDS: ASPIRIN 81 MG ENTERIC TABLET PO (08:05)
[2024-02-07] MEDS: ATORVASTATIN 40 MG TABLET PO (08:05)
[2024-02-07] MEDS: INSULIN GLARGINE (*BKC) 100 UNITS/ML 40 UNITS SUB-Q (08:06)
[2024-02-07] MEDS: INSULIN ASPART (*BKC) 100 UNITS/ML 10 UNITS SUB-Q ×2 (08:06→11:21)
--- NOTE | 2024-02-07 08:13 | WPDINTPN ---
Progress Note: A&P Assessment and Plan (1) Hypotension: Code(s): I95.9 - Hypotension, unspecified Status: Acute Assessment and Plan: Patient on presentation was found to be hypotensive with elevated lactic acid level. He was given IV fluids without significant improvement. He had no obvious source of infection at that time apart from minor changes in the CT scan. CT scan also showed a pulmonary embolism which was small. During my discussion with the ER physician it was decided that we will administer tPA unless there was a contraindication and if patient understood the risks and benefits of it. Since patient was on Levophed decision was made to place central venous catheter before administration of tPA. Later ER physician reassessed the patient and felt the patient was hypovolemic has decision was made to give additional fluids and withhold tPA. I was not notified of these changes or was involved this discussion. Patient did improve with IV fluids and Levophed was weaned off overnight. On CT scan pulmonary embolism does appear small and is only in posterior basilar segment pulmonary artery at the left lower lobe. Patient also is on room air and not significantly tachycardia or hypoxic. Lactic acid level has normalized At this point will continue Levophed titration, I will hold further IV fluids as patient has received close to 5 L of IV fluids prevent further volume overload. Heparin infusion will be continue. Echo will be checked. Continue antibiotics as below 6/25 Levophed as now being weaned off since yesterday is now off of IV fluids and improved. Monitor (2) Pulmonary embolism: Qualifiers: Acute cor pulmonale presence: unspecified Chronicity: acute Pulmonary embolism type: unspecified Qualified Code(s): I26.99 - Other pulmonary embolism without acute cor pulmonale Code(s): I26.99 - Other pulmonary embolism without acute cor pulmonale Status: Acute Assessment and Plan: Continue heparin infusion Pending echo Lower extremity Dopplers negative Will defer transition to p.o. anticoagulation to internal medicine physician (3) Sepsis: Code(s): A41.9 - Sepsis, unspecified organism Status: Acute Assessment and Plan: On presentation patient met criteria for sepsis. No evidence of source of overwhelming infection. UA was negative, procalcitonin was on the lower side and WBC was normal. Chest CT does suggest area of mild bronchial wall thickening with some mucus plugging in bilateral lower lobes. 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 Appears to be asymptomatic at this time as patient denies any abdominal pain related to it. Discussed results with the patient and recommended follow-up as an outpatient and referral for General surgery (5) Diabetes mellitus with hyperglycemia: Qualifiers: Diabetes mellitus correction insulin use: with correction use Diabetes mellitus type: type 2 Qualified Code(s): E11.65 - Type 2 diabetes mellitus with hyperglycemia; Z79.4 - production line manager (current) use of insulin Code(s): E11.65 - Type 2 diabetes mellitus with hyperglycemia Status: Acute Assessment and Plan: Patient presented with elevated blood sugars. His beta hydroxybutyrate was normal. It appears that his diabetes is poorly controlled from history high blood sugars at home. Blood glucose improved with IV fluids and insulin Continue diabetic diet Poorly controlled diabetes at baseline Consulted certified diabetes educator and dietitian Increased Lantus at 40 units. Increased with meal insulin
[2024-02-07 08:15] LABS: Partial Thromboplastin Time 121.8 Seconds (22.3-36.8)
--- NOTE | 2024-02-07 10:38 | PCFNICU ---
ICU Rounding Note: Pt current nutrition is DBCC. Last recorded weight is 122.8 kg, down from 124.2 kg on admit. Bowel Motility: +Bm reported 02/05 Labs Reviewed:Glu 187, Cr 1.7,GFR 40, Alb 3.2,Hct 34.2,Hgb 11.2,Na 136 Meds Noted: Lantus, NovoLog Skin: WNL Additional Notes: Patient remains on a DBCC diet. Intake has been good, 100% of meals. Patient has been educated on diet. No further nutritional interventions needed at this time. Following daily in ICU rounds.
[2024-02-07 11:15] LABS: Glucose Point of Care 307 mg/dl (65-105)
[2024-02-07] MEDS: INSULIN ASPART (*BKC) 100 UNITS/ML SUB-Q ×2 (11:22→20:16)
--- NOTE | 2024-02-07 14:09 | PM.IMPN ---
Progress Note: A&P Assessment and Plan (1) Hypotension: Code(s): I95.9 - Hypotension, unspecified Status: Acute Assessment and Plan: Patient on presentation was found to be hypotensive with elevated lactic acid level. Given IV fluids without significant improvement. He had no obvious source of infection but CT scan also showed a pulmonary embolism which was small. Central line placed and Levophed started. Initial plan was to administer tPA but decided that patient was hypovolemic as cause of the HoTN so more fluids administered. Suspect hypovolemia related to HCTZ, hyperglycemia with osmotic diuresis. Lactic acid level was 4 but now has normalized He was able to weaned off Levophed. Monitor BP closely. Lisinopril, HCTZ remain on hold (2) Pulmonary embolism: Qualifiers: Acute cor pulmonale presence: unspecified Chronicity: acute Pulmonary embolism type: unspecified Qualified Code(s): I26.99 - Other pulmonary embolism without acute cor pulmonale Code(s): I26.99 - Other pulmonary embolism without acute cor pulmonale Status: Acute Assessment and Plan: CTA chest showing PE posterior basilar segmental pulmonary artery LLL. Started on a heparin infusion. Echo ordered. LE venous doppler negative. Change Heparin drip to Elquis (3) Sepsis: Code(s): A41.9 - Sepsis, unspecified organism Status: Acute Assessment and Plan: On presentation patient met criteria for sepsis vs SIRS. No evidence of source of overwhelming infection. UA was negative. WBC was normal. PCT 0.3. Chest CT does suggest area of mild bronchial wall thickening with some mucus plugging in bilateral lower lobes so consider PNA. 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 Appears to be asymptomatic at this time as patient denies any symptoms related to it. Patient made aware. Plan for patient to follow-up as an outpatient and referral for General surgery or vascular (5) Diabetes mellitus with hyperglycemia: Qualifiers: Diabetes mellitus train controller insulin use: with train controller use Diabetes mellitus type: type 2 Qualified Code(s): E11.65 - Type 2 diabetes mellitus with hyperglycemia; Z79.4 - solder making supervisor (current) use of insulin Code(s): E11.65 - Type 2 diabetes mellitus with hyperglycemia Status: Acute Assessment and Plan: Patient presented with elevated blood sugars. His beta hydroxybutyrate was normal. A1c 9.6 showing his diabetes is poorly controlled from history of high blood sugars at home. Blood glucose improved with IV fluids and insulin Continue diabetic diet. Consult staff development educator and dietitian Continue meal time Novolog. Continue sliding scale. Advance lantus Adjust accordingly (6) Elevated serum creatinine: Code(s): R79.89 - Other specified abnormal findings of blood chemistry Status: Acute Assessment and Plan: Patient presented with creatinine of 2.1. Baseline creatinine is unknown (although nephrolgoy note states this is chronic) CT scan does not show any stones or hydronephrosis Renal US showing normal kidneys without hydronephrosis Total CK 230. Urine electrolytes after fluid resuscitation so unclear this is accurate but FENa 1.17% and Lc 80 UOP 1700 yesterday and Cr better today. Monitor urine output, electrolytes and creatinine Nephrology following and appreciate their input) (7) HTN (hypertension): Code(s): I10 - Essential (primary) hypertension Status: Acute Assessment and Plan: Antihypertensive on hol
[2024-02-07] MEDS: APIXABAN 5 MG TABLET 10 MG PO ×2 (14:38→23:20)
[2024-02-07 16:23] LABS: Glucose Point of Care 137 mg/dl (65-105)
[2024-02-07] MEDS: ACETAMINOPHEN 325 MG TABLET 650 MG PO (20:16)
[2024-02-07 20:27] LABS: Glucose Point of Care 215 mg/dl (65-105)
[2024-02-07] MEDS: AZITHROMYCIN 250 MG TABLET 500 MG PO (23:19)
[2024-02-08 04:03] VITALS: BP 149/65; PULSE 86; RESP 18; TEMP 37; O2SAT 96
[2024-02-08 04:42] LABS: Hematocrit 32.7 % (42.0-52.0); Hemoglobin 10.7 g/dL (14.0-18.0); Mean Corpuscular HGB Conc 32.7 g/dl (32-36); Mean Corpuscular Hemoglobin 30.1 pg (26-34); Mean Corpuscular Volume 92.1 fl (80-100); Mean Platelet Volume 9.8 fl (7.4-10.4); Platelet Count Result 105 k/mm3 (150-375); Red Blood Count 3.55 M/mm3 (4.6-6.20); Red Cell Distribution Width 15.7 % (11.5-14.5); White Blood Count 4.9 K/mm3 (4.5-10.0)
[2024-02-08 04:52] LABS: Alanine Aminotransferase 9 U/L (6-50); Albumin Level 3.6 g/dL (3.5-5.1); Alkaline Phosphatase 77 U/L (38-126); Anion Gap 6 mmol/L (4-12); Aspartate Amino Transferase 21 U/L (17-59); Bilirubin,Total 0.8 mg/dL (0.2-1.3); Blood Urea Nitrogen 26 mg/dL (9-20); Calcium 8.8 mg/dL (8.4-10.2); Carbon Dioxide 21 mmol/L (22-30); Chloride 109 mmol/L (98-107); Estimated CRCL calculation 58 ml/min; Estimated Glomerular Filt Rate 50; Glucose 193 mg/dL (65-110); Magnesium 2.1 mg/dL (1.6-2.3); Potassium 4.1 mmol/L (3.4-5.0); Sodium 136 mmol/L (137-145)
[2024-02-08] MEDS: ATORVASTATIN 40 MG TABLET PO (07:39)
[2024-02-08] MEDS: INSULIN ASPART (*BKC) 100 UNITS/ML 10 UNITS SUB-Q ×3 (07:39→16:34)
[2024-02-08] MEDS: INSULIN ASPART (*BKC) 100 UNITS/ML SUB-Q ×2 (07:39→11:46)
[2024-02-08] MEDS: INSULIN GLARGINE (*BKC) 100 UNITS/ML 40 UNITS SUB-Q (07:39)
[2024-02-08] MEDS: TAMSULOSIN HCL 0.4 MG CAPSULE PO (07:40)
[2024-02-08] MEDS: APIXABAN 5 MG TABLET 10 MG PO ×2 (07:40→20:04)
[2024-02-08] MEDS: ASPIRIN 81 MG ENTERIC TABLET PO (07:40)
[2024-02-08 07:49] LABS: Glucose Point of Care 220 mg/dl (65-105)
[2024-02-08 08:00] VITALS: BP 145/69; PULSE 81; RESP 15; TEMP 36.7; O2SAT 95
[2024-02-08] MEDS: ACETAMINOPHEN 325 MG TABLET 650 MG PO ×2 (10:00→20:39)
[2024-02-08 11:29] LABS: Anti Nuclear Antibody Pattern Cytoplasmic; Anti Nuclear Antibody Titer 1:40 titer
[2024-02-08 11:41] LABS: Glucose Point of Care 314 mg/dl (65-105)
[2024-02-08 11:45] VITALS: BP 99/57; PULSE 94; RESP 16; TEMP 36.8; O2SAT 100
[2024-02-08 11:55] LABS: Kappa\\Lambda Light Chains 1.59 (0.26-1.65)
--- NOTE | 2024-02-08 12:00 | PC.NURSE ---
This patient, Esteban Sultana, was received from IMU on 02/08/24 at 1128. Patient/family oriented to unit policies and routines
--- NOTE | 2024-02-08 12:52 | PM.PNNEP ---
Progress Note: A&P Assessment and Plan (1) EMILY (acute kidney injury): Code(s): N17.9 - Acute kidney failure, unspecified Status: Acute Assessment and Plan: unknown what baseline creatinine is... was stable around 2ish range on admission and now down to 1.4mg/dl evaluation to date noted: renal ultrasound okay urine lytes prerenal (by FeUrea) CPK okay no significant proteinuria UA significant for glucosuria noted positive LICO -- check dsDNA-Ab; SPEP/UPEP pending follow trend of repeat labs and UOP (2) Chronic kidney disease: Qualifiers: Chronic kidney disease stage: unspecified stage Qualified Code(s): N18.9 - Chronic kidney disease, unspecified Code(s): N18.9 - Chronic kidney disease, unspecified Status: Chronic Assessment and Plan: presumably secondary to HTN, DM, vascular disease and possible BENJIE follow-up on pending testing still awaiting old records (3) Pulmonary embolism: Qualifiers: Acute cor pulmonale presence: unspecified Chronicity: acute Pulmonary embolism type: unspecified Qualified Code(s): I26.99 - Other pulmonary embolism without acute cor pulmonale Code(s): I26.99 - Other pulmonary embolism without acute cor pulmonale Status: Acute Assessment and Plan: as discovered by admission imaging on anticoagulation (4) HTN (hypertension): Code(s): I10 - Essential (primary) hypertension Status: Chronic Assessment and Plan: was low on admission better s/p IVFs has been fluctuating since follow trend of hemodynamics (5) Diabetes mellitus with hyperglycemia: Qualifiers: Diabetes mellitus care home insulin use: with oysterman use Diabetes mellitus type: type 2 Qualified Code(s): E11.65 - Type 2 diabetes mellitus with hyperglycemia; Z79.4 - termite treater helper (current) use of insulin Code(s): E11.65 - Type 2 diabetes mellitus with hyperglycemia Status: Chronic Assessment and Plan: follow accu-cheks glycemic control per hospitalists Will continue to follow. Subjective Date/time seen: 02/08/24 12:52 Interval history: Follow-up for acute kidney injury/acute renal failure on chronic kidney disease. Chart reviewed -- assuming care from Dr. Ray; renal function continues to improve with current therapy/interventions; no apparent distress noted at the time of my visit; no other issues/events overnight or earlier this morning. Exam Narrative: General: WD/WN male in NAD Heart: normal S1 and S2; no rub Lungs: clear to auscultation Abdomen: soft, nontender, nondistended, positive bowel sounds Extremities: no cyanosis or clubbing; 1+ edema Skin: warm and dry Objective Data Vital Signs Vital Signs: Vital Signs Temp Pulse Resp BP Pulse Ox O2 Del Method 02/08/24 11:45 98.2 F 94 16 99/57 L 100 02/08/24 08:00 95 Room Air 02/08/24 08:00 81 15 95 Room Air 02/08/24 08:00 98.1 F 81 15 145/69 H 95 02/08/24 04:03 98.6 F 86 18 149/65 H 96 02/07/24 20:00 Room Air 02/07/24 20:00 98.6 F 88 20 135/96 H 98 Intake/Output Intake/Output: Intake & Output 02/05/24 02/06/24 02/07/24 02/08/24 23:59 23:59 23:59 23:59 Intake Total 4019.7 2977.3 2011.9 1370 Output Total 1700 2670 1400 Balance 4019.7 1277.3 -658.1 -30 Meds/Results Medications: Active Medications Generic Name Dose Route Start Last Admin Trade Name Jasbir PRN Reason Stop Dose Admin Acetaminophen 650 mg 02/05/24 15:59 02/08/24 10:00 Acetaminophen 325 Mg Tablet PO 650 mg Q4H PRN Administration Mild Pain (1-3) or Fever Amoxicillin/Clavulanate Potassium 1 tablet 02/09/24 09:00 Amoxicillin/Clavulanate K 875-125 Mg Tab PO 02/09/24 21:01 Q12HR JERROD Apixaban 10 mg 02/07/24 15:00 02/08/24 07:40 Apixaban 5 Mg Tablet PO 02/13/24 21:01 10 mg Q12HR JERROD Administration Apixaban 5 mg 02/14/24
--- NOTE | 2024-02-08 12:52 | P.PNNP_ITS ---
Progress Note: A&P Assessment and Plan (1) EMILY (acute kidney injury): Code(s): N17.9 - Acute kidney failure, unspecified Status: Acute Assessment and Plan: * unknown what baseline creatinine is... * was stable around 2ish range on admission and now down to 1.4mg/dl * evaluation to date noted: * renal ultrasound okay * urine lytes prerenal (by FeUrea) * CPK okay * no significant proteinuria * UA significant for glucosuria * noted positive LICO -- check dsDNA-Ab; SPEP/UPEP pending * follow trend of repeat labs and UOP (2) Chronic kidney disease: Qualifiers: Chronic kidney disease stage: unspecified stage Qualified Code(s): N18.9 - Chronic kidney disease, unspecified Code(s): N18.9 - Chronic kidney disease, unspecified Status: Chronic Assessment and Plan: * presumably secondary to HTN, DM, vascular disease and possible BENJIE * follow-up on pending testing * still awaiting old records (3) Pulmonary embolism: Qualifiers: Acute cor pulmonale presence: unspecified Chronicity: acute Pulmonary embolism type: unspecified Qualified Code(s): I26.99 - Other pulmonary embolism without acute cor pulmonale Code(s): I26.99 - Other pulmonary embolism without acute cor pulmonale Status: Acute Assessment and Plan: * as discovered by admission imaging * on anticoagulation (4) HTN (hypertension): Code(s): I10 - Essential (primary) hypertension Status: Chronic Assessment and Plan: * was low on admission * better s/p IVFs * has been fluctuating since * follow trend of hemodynamics (5) Diabetes mellitus with hyperglycemia: Qualifiers: Diabetes mellitus chcf insulin use: with chcf use Diabetes mellitus type: type 2 Qualified Code(s): E11.65 - Type 2 diabetes mellitus with hyperglycemia; Z79.4 - skilled nursing (current) use of insulin Code(s): E11.65 - Type 2 diabetes mellitus with hyperglycemia Status: Chronic Assessment and Plan: * follow accu-cheks * glycemic control per hospitalists Will continue to follow. Subjective Date/time seen: 02/08/24 12:52 Interval history: Follow-up for acute kidney injury/acute renal failure on chronic kidney disease. Chart reviewed -- assuming care from Dr. Ray; renal function continues to improve with current therapy/interventions; no apparent distress noted at the time of my visit; no other issues/events overnight or earlier this morning. Exam Narrative: General: WD/WN male in NAD Heart: normal S1 and S2; no rub Lungs: clear to auscultation Abdomen: soft, nontender, nondistended, positive bowel sounds Extremities: no cyanosis or clubbing; 1+ edema Skin: warm and dry Objective Data Vital Signs Vital Signs: Vital Signs Temp Pulse Resp BP Pulse Ox O2 Del Method 02/08/24 11:45 98.2 F 94 16 99/57 L 100 02/08/24 08:00 95 Room Air 02/08/24 08:00 81 15 95 Room Air 02/08/24 08:00 98.1 F 81 15 145/69 H 95 02/08/24 04:03 98.6 F 86 18 149/65 H 96 02/07/24 20:00 Room Air 02/07/24 20:00 98.6 F 88 20 135/96 H 98 Intake/Output Intake/Output: Intake & Output 02/05/24 02/06/24 02/07/24 02/08/24 23:59 23:59 23:59 23:59 Inta
--- NOTE | 2024-02-08 12:53 | PCOTNOTE ---
Attempted to see pt. for occupational therapy evaluation. Per ICU nursing, pt. up and walking laps in ICU this morning, prior to transfer to room 346. Spoke with pt. and spouse, who confirmed pt. has been up and ambulating, stand by for safety without assist.
[2024-02-08 13:24] LABS: Complement Total CH50 >60 U/mL (31-60)
[2024-02-08 13:59] VITALS: BP 115/64; PULSE 83; RESP 16; TEMP 37.1; O2SAT 97
[2024-02-08 16:35] LABS: Glucose Point of Care 196 mg/dl (65-105)
--- NOTE | 2024-02-08 17:01 | PM.IMPN ---
Progress Note: A&P Assessment and Plan (1) Hypotension: Code(s): I95.9 - Hypotension, unspecified Status: Acute Assessment and Plan: Patient on presentation was found to be hypotensive with elevated lactic acid level. Given IV fluids without significant improvement. He had no obvious source of infection but CT scan also showed a pulmonary embolism which was small. Central line placed and Levophed started. Initial plan was to administer tPA but decided that patient was hypovolemic as cause of the HoTN so more fluids administered. Suspect hypovolemia related to HCTZ, hyperglycemia with osmotic diuresis. Lactic acid level was 4 but now has normalized He was able to weaned off Levophed. Monitor BP closely. Lisinopril, HCTZ remain on hold (2) Pulmonary embolism: Qualifiers: Acute cor pulmonale presence: unspecified Chronicity: acute Pulmonary embolism type: unspecified Qualified Code(s): I26.99 - Other pulmonary embolism without acute cor pulmonale Code(s): I26.99 - Other pulmonary embolism without acute cor pulmonale Status: Acute Assessment and Plan: CTA chest showing PE posterior basilar segmental pulmonary artery LLL. Started on a heparin infusion. Echo ordered. LE venous doppler negative. Change Heparin drip to Elquis (3) Sepsis: Code(s): A41.9 - Sepsis, unspecified organism Status: Acute Assessment and Plan: On presentation patient met criteria for sepsis vs SIRS. No evidence of source of overwhelming infection. UA was negative. WBC was normal. PCT 0.3. Chest CT does suggest area of mild bronchial wall thickening with some mucus plugging in bilateral lower lobes so consider PNA. 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 Appears to be asymptomatic at this time as patient denies any symptoms related to it. Patient made aware. Plan for patient to follow-up as an outpatient and referral for General surgery or vascular (5) Diabetes mellitus with hyperglycemia: Qualifiers: Diabetes mellitus terminal computer operator insulin use: with terminal computer operator use Diabetes mellitus type: type 2 Qualified Code(s): E11.65 - Type 2 diabetes mellitus with hyperglycemia; Z79.4 - intermediate manager (current) use of insulin Code(s): E11.65 - Type 2 diabetes mellitus with hyperglycemia Status: Acute Assessment and Plan: Patient presented with elevated blood sugars. His beta hydroxybutyrate was normal. A1c 9.6 showing his diabetes is poorly controlled from history of high blood sugars at home. Blood glucose improved with IV fluids and insulin Continue diabetic diet. Consult staff development educator and dietitian Continue meal time Novolog. Continue sliding scale. Advance lantus Adjust accordingly (6) Elevated serum creatinine: Code(s): R79.89 - Other specified abnormal findings of blood chemistry Status: Acute Assessment and Plan: Patient presented with creatinine of 2.1. Baseline creatinine is unknown (although nephrolgoy note states this is chronic) CT scan does not show any stones or hydronephrosis Renal US showing normal kidneys without hydronephrosis Total CK 230. Urine electrolytes after fluid resuscitation so unclear this is accurate but FENa 1.17% and Lc 80 UOP 1700 yesterday and Cr better today. Monitor urine output, electrolytes and creatinine Nephrology following and appreciate their input) (7) HTN (hypertension): Code(s): I10 - Essential (primary) hypertension Status: Acute Assessment and Plan: Antihypertensive on hol
[2024-02-08 18:12] LABS: Creat 24 Hr 1.33 g/24 h (0.50-2.15); Pro/Creat Ratio 118 mg/g creat (<100); Pro/Creat Ratio mg/mg 0.118 (<0.100); Protein,total, 24 Hr Ur 156 mg/24 h (<150)
[2024-02-08 20:29] LABS: Glucose Point of Care 165 mg/dl (65-105)
[2024-02-08 21:23] VITALS: BP 127/57; PULSE 84; RESP 20; TEMP 36.9; O2SAT 98
[2024-02-09 05:37] LABS: Hematocrit 30.1 % (42.0-52.0); Hemoglobin 9.8 g/dL (14.0-18.0); Immature Platelet Fraction Pct 2.1 % (0.9-11.2); Mean Corpuscular HGB Conc 32.6 g/dl (32-36); Mean Corpuscular Hemoglobin 30.1 pg (26-34); Mean Corpuscular Volume 92.3 fl (80-100); Platelet Count Result 102 k/mm3 (150-375); Red Blood Count 3.26 M/mm3 (4.6-6.20); Red Cell Distribution Width 15.6 % (11.5-14.5); White Blood Count 3.4 K/mm3 (4.5-10.0)
[2024-02-09 05:50] LABS: Alanine Aminotransferase 12 U/L (6-50); Albumin Level 3.4 g/dL (3.5-5.1); Alkaline Phosphatase 74 U/L (38-126); Anion Gap 6 mmol/L (4-12); Aspartate Amino Transferase 21 U/L (17-59); Bilirubin,Total 0.7 mg/dL (0.2-1.3); Blood Urea Nitrogen 20 mg/dL (9-20); Calcium 8.9 mg/dL (8.4-10.2); Carbon Dioxide 19 mmol/L (22-30); Chloride 110 mmol/L (98-107); Estimated CRCL calculation 73 ml/min; Estimated Glomerular Filt Rate > 60; Glucose 202 mg/dL (65-110); Magnesium 1.9 mg/dL (1.6-2.3); Potassium 4.1 mmol/L (3.4-5.0); Sodium 135 mmol/L (137-145)
[2024-02-09 06:00] VITALS: BP 141/72; PULSE 78; RESP 18; TEMP 36.4; O2SAT 96
[2024-02-09 08:12] LABS: Glucose Point of Care 205 mg/dl (65-105)
[2024-02-09] MEDS: INSULIN ASPART (*BKC) 100 UNITS/ML SUB-Q (08:33)
[2024-02-09] MEDS: INSULIN ASPART (*BKC) 100 UNITS/ML 13 UNITS SUB-Q (08:33)
[2024-02-09] MEDS: INSULIN GLARGINE (*BKC) 100 UNITS/ML 40 UNITS SUB-Q (08:35)
[2024-02-09] MEDS: ASPIRIN 81 MG ENTERIC TABLET PO (08:37)
[2024-02-09] MEDS: APIXABAN 5 MG TABLET 10 MG PO (08:37)
[2024-02-09] MEDS: TAMSULOSIN HCL 0.4 MG CAPSULE PO (08:38)
[2024-02-09] MEDS: AMOXICILLIN/CLAVULANATE K 875-125 MG TAB 1 TABLET PO (08:38)
[2024-02-09] MEDS: ATORVASTATIN 40 MG TABLET PO (08:38)
--- NOTE | 2024-02-09 10:01 | PM.DS ---
DS: Admitting Diagnosis Discharge Date February 09, 2024 Admitting Diagnosis Shock and hyperglycemia DS: Discharge Diagnosis Discharge Diagnosis (1) EMILY (acute kidney injury): Code(s): N17.9 - Acute kidney failure, unspecified Status: Acute (2) Chronic kidney disease: Qualifiers: Chronic kidney disease stage: unspecified stage Qualified Code(s): N18.9 - Chronic kidney disease, unspecified Code(s): N18.9 - Chronic kidney disease, unspecified Status: Chronic (3) Diabetes mellitus with hyperglycemia: Qualifiers: Diabetes mellitus termite helper insulin use: with fdc use Diabetes mellitus type: type 2 Qualified Code(s): E11.65 - Type 2 diabetes mellitus with hyperglycemia; Z79.4 - care home (current) use of insulin Code(s): E11.65 - Type 2 diabetes mellitus with hyperglycemia Status: Chronic (4) Pulmonary embolism: Qualifiers: Acute cor pulmonale presence: unspecified Chronicity: acute Pulmonary embolism type: unspecified Qualified Code(s): I26.99 - Other pulmonary embolism without acute cor pulmonale Code(s): I26.99 - Other pulmonary embolism without acute cor pulmonale Status: Acute (5) 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 Patient had been not adherent to diabetic diet and had missed doses of his insulin at home. Patient was admitted to the ICU on 02/05/2024 on admission due to sepsis requiring Levophed. Sepsis was due to undetermined etiology. He was started on Rocephin and azithromycin, transition to Augmentin and completed a 5 day course. Hypotension thought to be due to some osmotic diuresis and hydrochlorothiazide use. Patient did well and was taken off of Levophed transferred out of ICU and blood pressures normalized. Administering insulin long-acting and NovoLog, blood sugars were much better controlled. The patient was counseled on multiple occasions the importance of diet and lifestyle modification and adherence to medical therapy for diabetes. He was enthusiastic to pursue a better lifestyle and agreed to be compliant. asthma educator was consulted and referral made on discharge as well. Incidentally a pulmonary embolism was found in the posterior basilar segmental pulmonary artery of the left lower lobe, started on heparin infusion and transition to Eliquis without issue. His new medication on discharge is Eliquis 10 mg p.o. b.i.d. for another 4 days and then mg p.o. b.i.d.. 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 Patient was asymptomatic and denied any symptoms related to it and he agreed to have close follow-up with vascular surgery and wanted to be referred by his PCP. Due to the above he presented with an EMILY, serum creatinine 2.10 and then discharged serum creatinine coming down to 1.1. Adverse effects, risk and benefits of medications discussed specifically to insulin and Eliquis to which the patient understood and agreed. Time Spent with Patient Time attestation: Total time spent providing and/or coordinating discharge services: Exam Const: General: comfortable and no acute distress Other: Obese. A&O x3. Eyes: Pupils: Equal, round and reactive pupils present Neck: Neck:
[2024-02-09 15:29] LABS: Albumin 100 %
[2024-02-10 17:52] LABS: Immunofixation, Serum Normal pattern.
== END 2024-02-09 10:52 | disposition home or self-care (01) | DRG 871 ==
LOC: ANHED 13:40 → ANHICU 16:38 → ANH3MED 02-08 11:44
PROVIDERS: Internal Medicine; Internal Medicine Nephrology; Student in an Organized Health Care Education/Training Program; Admitting Provider Internal Medicine; Emergency Provider Student in an Organized Health Care Education/Training Program; PCP Physician Assistant; Visit Provider Internal Medicine
DX: A41.9 Sepsis, unspecified organism (principal); I26.99 Other pulmonary embolism without acute cor pulmonale; I77.4 Celiac artery compression syndrome; N17.9 Acute kidney failure, unspecified; E86.0 Dehydration; E11.22 Type 2 diabetes mellitus with diabetic chronic kidney disease; E78.5 Hyperlipidemia, unspecified; E11.65 Type 2 diabetes mellitus with hyperglycemia; H26.9 Unspecified cataract; I12.9 Hypertensive chronic kidney disease with stage 1 through stage 4 chronic kidney disease, or unspecified chronic kidney disease; I95.9 Hypotension, unspecified; K43.9 Ventral hernia without obstruction or gangrene; M10.9 Gout, unspecified; M19.90 Unspecified osteoarthritis, unspecified site; N18.9 Chronic kidney disease, unspecified; R55 Syncope and collapse; W19.XXXA Unspecified fall, initial encounter; Z90.49 Acquired absence of other specified parts of digestive tract; Z87.891 Personal history of nicotine dependence; Z66 Do not resuscitate; Z79.82 Long term (current) use of aspirin; Z79.84 Long term (current) use of oral hypoglycemic drugs; Z79.4 Long term (current) use of insulin
CPT/HCPCS: 36415; 36600; 70450; 71045; 71275; 74174; 76775; 80048; 80053; 80069; 81001; 82010; 82550; 82570; 82805; 82948; 83036; 83605; 83690; 83735; 83883; 83970; 84100; 84145; 84156; 84300; 84484; 84540; 85025; 85027; 85055; 85610; 85652; 85730; 86038; 86039; 86160; 86162; 86334; 86335; 86850; 86900; 86901; 87040; 87641; 93005; 93970; 96361; 96374; 99285; A9270; C1751; C8929; C9113; J0456; J0696; J1644; J1815; J7030; J7120; Q9957; Q9967

== ENCOUNTER 2024-11-08 07:59 | Outpatient (CLI) | payer MEDICARE, OTHER, SELFPAY ==
--- OUTSIDE RECORDS SUMMARY | 2024-11-08 08:08 | XMS_ITS | Encounter Summary ---
Author Organization [facility] Address [address] [place] [address] Phone Care Team Providers Care Hospital Wellness Coordinator Name Role Phone Kajal French PAC Primary Care Provider [phone] Aman Mark MD Unavailable [phone] Reason for Visit * Reason Comments Medication Refill Encounter Details Date Type Department Care Team (Late st Contact Info) Description 11/03/2022 Refill [facility] [address] [place] [address] Nelly Landry, ASSISTANT PROFESSOR OF ANTHROPOLOGY, AIRCRAFT MAINTENANCE TECHNICIAN [address] [place] [address] Medication Refill Social History Tobacco Use Types Packs/Day Years Used Date Smoking Tobacco: Former Cigarettes Q uit: 1995 Smokeless Tobacco: Never Alcohol Use Standard Drinks/Week Comments Yes 0 (1 standard drink = 0.6 oz pur e alcohol) socially PHQ-2 Answer Date Recorded Total Score - Questions 1-9 1 04/15 Sex and Gender Information Value Date Recorded Sex Assigned at Not on file Legal Sex Male 8:31 AM CDT Gender Identity Not on file Sexual Orientation Not on file documented as of this encounter Miscellaneous Notes * Telephone Encounter - Ebony Montgomery RN - 11/03/2022 8:06 AM CDT Refill request from pharmacy. Please fill if appropriate. documented in this encounter Plan of Treatment Upcoming Encounters Date Type Department Care Team (Late st Contact Info) Description 01/24/2025 10:45 AM CDT Office Visit [facility] [address] [address] Aman Mark MD [address] [place] [address] documented as of this encounter Visit Diagnoses Not on filedocumented in this encounter Additional Health Concerns Assessment Noted Time PHQ-9 Depression Total Score: 1 04/30/20 21 2:55 PM CDT documented as of this encounter Care Teams Hospital Wellness Coordinator Relationship Specialty Start Date End Date Kajal French, PAC PCP - General Physician Facilities Painter 01/28/21 Aman Mark MD [address] [place] [phone] Consulting Physician Oncology 01/28/21 documented as of this encounter
--- OUTSIDE RECORDS SUMMARY | 2024-11-08 08:08 | XMS_ITS | Encounter Summary ---
Author Organization [facility] Address [address] [place] [address] Phone Care Team Providers Care Web Mobile Designer Name Role Phone Kajal French Primary Care Provider [phone]- [phone] Aman Mark MD Unavailable [phone] Reason for Visit * Reason Comments Medication Refill Encounter Details Date Type Department Care Team (Late st Contact Info) Description 12/03/2022 Refill [facility] [address] [place] [address] Aman Mark MD [address] [place] [phone] Medication Refill Social History Tobacco Use Types [...] on file Sexual Orientation Not on file COVID-19 Exposure Response Date Recorded In the last 10 days, have yo u been in contact with someone who was confirmed or suspected to have Coronavirus/COVID-19? No / Unsure 11/11/2022 10:12 AM CDT documented as of this encounter Miscellaneous Notes * Telephone Encounter - Nelly Lanier APRN, [place] - 12/03/2022 1:41 PM CDT Okay to refill. * Telephone Encounter - Ebony Montgomery, RN - 12/03/2022 11:17 AM CDT Refill request from pharmacy. Please fill if appropriate. documented in this encounter Plan of Treatment Upcoming Encounters Date Type Department Care Team (Late st Contact Info) Description 01/24/2025 10:45 AM CDT Office Visit [facility] [address] [address] Aman Mark MD [address] [place] [phone] documented as of this encounter Visit Diagnoses Diagnosis Anemia, unspecified type- Primary documented in this encounter Additional Health Concerns Assessment Noted Time PHQ-9 Depression Total Score: 1 04/30/20 21 2:55 PM CDT documented as of this encounter Care Teams Web Mobile Designer Relationship Specialty Start Date End Date Kajal French, [place] PCP - General Physician Stevedoring Supervisor 01/28/21 Aman Mark MD [address] [place] [phone] Consulting Physician Oncology 01/28/21 documented as of this encounter
--- OUTSIDE RECORDS SUMMARY | 2024-11-08 08:08 | XMS_ITS | Referral Summary ---
Author Organization [facility] Address [address] [place] [address] Care Team Providers Care Top Lifter Name Role Phone Kajal French Primary Care Provider [phone] Allergies Active Allergy Reactions Criticality Noted Date Comments Adhesive Rash Medium 12/21/2022 Bandaid Celecoxib Hives,Unknown Medium 05/19/2022 Reaction: Hives, Hydrochlorothiazide Rash Medium 09/22/2022 Morphine Other (See comments),Unknown Medium 05/19/2022 Patients states it made him verbally abusive Medications aspirin (ASPIRIN LOW DOSE) 81 mg tablet take 1 tablet (81MG) by oral route every day [address] (CYMBALTA) 60 mg capsule take 1 capsule by oral route every day 0 0 6 Active UNIFINE PENTIPS 31 gauge x 5/16 needleIndication s:Type 2 diabetes mellitus with hyperglycemia, with long-term current use of insulin (HCC) USE FOUR TIMES A DAY 400 each 2 8 Active ONETOUCH DELICA LANCETS 33 gauge misc Use to test blood sugars twice a day 8 Active tamsulosin (FLOMAX) 0.4 mg extended release capsule 8 Active atorvastatin (LIPITOR) 40 mg tablet Take 1 tablet (40 mg total) by mouth nightly 9 Active cyanocobalamin (Vitamin B-12) 1,000 mcg/mL injection Active allopurinoL (ZYLOPRIM) 300 mg tablet Take 1 tablet (300 mg total) by mouth daily 2 Active BD Luer-Roberta Syringe 3 mL 21 gauge x 1 08/16 syringe USE NEW NEEDLE SYRINGE WITH EACH INJECTION [address] (VOLTAREN) 75 mg EC tablet Take 1 tablet (75 mg total) by mouth 2 (two) times a day 2 Active lisinopriL (PRINIVIL,ZESTRI L) 40 mg tablet 0.5 tablets (20 mg total) 2 Active hydroCHLOROthiaz george (HYDRODIURIL) 25 mg tablet Take 1 tablet (25 mg total) by mouth every morning 3 Active albuterol HFA (PROVENTIL HFA,VENTOLIN HFA,PROAIR HFA) 90 mcg/actuation inhaler INHALE 2 PUFFS INTO THE LUNGS EVERY 6 HOURS NEEDED FOR WHEEZE Active ergocalciferol (VITAMIN D) 50,000 unit capsule Take 1 capsule (50,000 Units total) by mouth once a week 3 Active cetirizine (ZyrTEC) 10 mg tablet Take 1 tablet (10 mg total) by mouth daily 4 Active cyanocobalamin-c obamamide (B12) 5,000-100 mcg lozenge Take 1,000 mcg by mouth daily Active gabapentin (NEURONTIN) 300 mg capsule TAKE 1 CAPSULE THREE TIMES A DAY 270 capsule 3 4 Active insulin lispro (HumaLOG) 100 unit/mL vial for injection INJECT 16 UNITS BEFORE BREAKFAST AND LUNCH, AND 20 UNITS BEFORE DINNER 80 mL 2 4 Active Additional Information Patient taking differently: 22-25 Units subcutaneous 3 times daily before meals, (No instructions reported), Reported on 04/03/2024 [employer] Verio test strips strip Dx: E11.65 insulin dependent. Use to check blood sugar 3 times daily. 300 strip 3 4 Active insulin glargine (LANTUS) 100 unit/mL (3 mL) pen for injection Inject 60 Units under the skin nightly 30 mL 3 4 Active Eliquis 5 mg tablet Take 1 tablet (5 mg total) by mouth 2 (two) times a day [address] (CYMBALTA) 30 mg capsule TAKE 1 CAPSULE IN THE EVENING ALONG WITH THE 60 MG IN THE MORNING 4 Active lisinopriL (PRINIVIL,ZESTRI L) 20 mg tablet Take 1 tablet (20 mg total) by mouth daily 4 Active exenatide ER microspheres (Bydureon BCise) 2 mg/0.85 mL auto-injectorInd ications:Type 2 diabetes mellitus with hyperglycemia, with long-term current use of insulin ([facility]) Inject 2 mg under the skin every 7 days 10 mL 3 4 Active dapagliflozin propanediol (Farxiga) 10 mg tabletIndication s:Type 2 diabetes mellitus with hyperglycemia, with long-term current use of insulin ([facility]) TAKE 1 TABLET BY MOUTH EVERY DAY 90 tablet 3 4 Active metFORMIN XR (GLUCOPHAGE XR) 500 mg 24 hr tabletIndication s:Type 2 diabetes mellitus with hyperglycemia, with long-term current use of insulin ([facility]) TAKE 1 TABLET TWICE A DAY 180 tablet 5 Active Active Problems Problem Noted Date Diagnosed Date Severe obesity 04/03/2024 Class 3 severe obesity due t o excess calories with serious comorbidity and body mass index (BMI) of 40.0 to 44.9 in adult 04/03/2024 Assessment & Plan (04/03/2024 11:25 AM CDT): Discussed healthy diet and importance of regular physical activity (20- 30min/day, 150min/wk). Has been active cleaning out his garage. Tries to walk if his sugar is up. DM type 2 with diabetic peripheral neuropathy Assessment & Plan (04/03/2024 11:29 AM CDT): Chronic problem. Currently taking gabapentin 300mg tid. Reviewed foot care; needs to lotion daily. Aware to check feet nightly, not to go barefoot. Assessment & Plan (11/17/2023 11:43 AM CDT): Chronic, stable Continue Gabapentin Foot care discussed. Assessment & Plan (06/07/2023 11:39 AM CDT): Chronic problem. Currently taking gabapentin 300mg tid. Aware to check feet nightly. Aware to not go barefoot. Assessment & Plan (02/24/2023 10:06 AM CDT): Chronic problem. Currently taking gabapentin 300mg tid. Aware to check feet nightly. Aware to not go barefoot. Assessment & Plan (10/22/2020 3:30 PM WOOLEN TESTER): He is doing well using Omnipod. Attempting to count carbs and using SML when he cannot. Not site issues. He is setting up his Loulou sensor as well. No BG < 70 but there are several < 100. Will adjust basal. Assessment & Plan (06/06/2018 3:48 PM CDT): Foot care discussed On Gabapentin. Hyperlipidemia associated with type 2 diabetes bo rogers 02/14/2018 Assessment & Plan (04/03/2024 10:57 AM CDT): Chronic problem. Controlled on current Atorvastatin 40mg. Last lipid panel: 06/22/23 LDL=61, FR=269. Assessment & Plan (06/07/2023 11:39 AM CDT): Chronic problem. Controlled on current Atorvastatin 40mg. Last lipid panel: 02/24/23 LDL=55, PI=608. Assessment & Plan (02/24/2023 10:06 AM CDT): Chronic problem. Controlled on current Atorvastatin 40mg. Last lipid panel: 01/20/22 LDL=75, OQ=955. Will update lipid panel today. Verified that he uses [facility]. Aware to check results/results letter in [facility]. Will contact by phone if needed. Assessment & Plan (10/28/2022 10:37 AM CDT): Chronic, well controlled Low fat Low cholesterol diet Exercise Continue statin therapy Atorvastatin Assessment & Plan (07/22/2022 10:38 AM WOOLEN TESTER): Chronic problem. On statin therapy, no changes. Assessment & Plan (04/15/2022 10:58 AM CDT): Chronic problem. On statin therapy, no changes. Assessment & Plan (05/21/2021 1:01 PM CDT): LDL at goal Continue with Lipitor Assessment & Plan (01/06/2021 11:41 AM CDT): At goal on current medications. Continue statin therapy. Assessment & Plan (09/03/2020 2:23 PM WOOLEN TESTER): Continue statin Assessment & Plan (05/01/2020 2:57 PM CDT): Continue statin Assessment & Plan (08/19/2019 2:26 PM WOOLEN TESTER): Will check lipid panel Assessment & Plan (03/27/2019 10:05 AM CDT): Goal of treatment , LDL cholesterol less than 100 ( less than 70 in patients with history of heart attacks and / or strokes ) NonHDL cholesterol ( total cholesterol minus HDL cholesterol ) goal less than 130 ( less than 100 in patients with history of heart attacks and / or strokes ) Low cholesterol, low fat diet was discussed and advised. Daily exercise On statin therapy Assessment & Plan (10/03/2018 10:12 AM WOOLEN TESTER): Goal of treatment , LDL cholesterol less than 100 ( less than 70 in patients with history of heart attacks and / or strokes ) NonHDL cholesterol ( total cholesterol minus HDL cholesterol ) goal less than 130 ( less than 100 in patients with history of heart attacks and / or strokes ) Low cholesterol, low fat diet was discussed and advised. Daily exercise On statin therapy Assessment & Plan (07/11/2018 10:39 AM WOOLEN TESTER): Goal of treatment , LDL cholesterol less than 100 ( less than 70 in patients with history of heart attacks and / or strokes ) NonHDL cholesterol ( total cholesterol minus HDL cholesterol ) goal less than 130 ( less than 100 in patients with history of heart attacks and / or strokes ) Low cholesterol, low fat diet was discussed and advised. Daily exercise On statin therapy Assessment & Plan (03/16/2018 4:32 PM CDT): Continue statin Assessment & Plan (02/14/2018 10:13 AM CDT): Goal of treatment , LDL cholesterol less than 100 ( less than 70 in patients with history of heart attacks and / or strokes ) NonHDL cholesterol ( total cholesterol minus HDL cholesterol ) goal less than 130 ( less than 100 in patients with history of heart attacks and / or strokes ) Low cholesterol, low fat diet was discussed and advised. Daily exercise On statin therapy Type 2 diabetes mellitus with hyperglycemia 11/13 Overview (11/19/2016): DMII WO CMP UNCNTRLD Assessment & Plan (04/03/2024 11:15 AM CDT): Chronic problem. A1c at goal at 6.1%. improved from 8.3% 11/17/23. Not following sliding scale closely. Stressed need to follow below sliding scale. Aware to pay attention to blood sugar once he restarts the Bydureon. He may need lower lantus doses. Don't take mealtime insulin if blood sugar less than 90. Current medications: Metformin XR 500mg twice daily before meals--cannot tolerate higher doses Farxiga 10mg daily Bydureon 2mg weekly Lantus 60 units at bedtime Humalog 22 units three times daily before meals For sugars over 150, take 24 units For sugars over 200, take 26 units For sugars over 250, take 28 units For sugars over 300, take 30 units Will update MA/Cr today. Verified that he uses [facility]. Aware to check results/results letter in [facility]. Will contact by phone if needed. UTD on DM eye exam (10/05/23). Stressed need for him to increase activity & watch diet. Strive for regular exercise (30min most days) and diet (get at least 4-5 servings of fruit and veggies daily, avoid processed foods, increase lean protein intake and decrease carb portions as well as fruit juices, regular soda & desserts). Watch carbs and simple sugars. Check the blood sugar 2-3x/day. Check the feet daily for skin breakdown and infection. Assessment & Plan (11/17/2023 11:41 AM CDT): Hba1c was Lab Results Component Value Date HGBA1C 8.3 11/17/2023 today, indicating suboptimal DM control Goal Hba1c under 7 and blood glucose level in the 120-160 range was explained Low carb diet and daily aerobic and /or resistant exercise were advised Prevention and treatment of hyypoglcyemia were discussed with the patient Blood glucose monitoring : not interested in CGM Continue fniger sticks 3 day Adjustment to medications: Continue Lantus, Humalog, Bydureon , Metformin Assessment & Plan (06/07/2023 11:51 AM CDT): Chronic problem. Uncontrolled/worsening A1c from 10.6% to now 11.1% today. Needs more consistent meals & mealtime insulin. Will increase Semglee 2 units weekly until BS under 150 initially. Would like lower but will start with this as goal. Current medications: Metformin 500mg twice daily before meals Farxiga 10mg daily Bydureon 2mg weekly Semglee 30 units at bedtime Humalog 22 units three times daily before meals For sugars over 150, take 24 units For sugars over 200, take 26 units For sugars over 250, take 28 units For sugars over 300, take 30 units UTD on labs UTD on DM eye exam. Stressed need for him to increase activity & watch diet. Strive for regular exercise (30min most days) and diet (get at least 4-5 servings of fruit and veggies daily, avoid processed foods, increase lean protein intake and decrease carb portions as well as fruit juices, regular soda & desserts). Watch carbs and simple sugars. Check the blood sugar 2-3x/day. Check the feet daily for skin breakdown and infection. Assessment & Plan (02/24/2023 10:38 AM CDT): Chronic problem. Uncontrolled/worsening A1c (now 10.6% from 6.4% 10/2022). Farxiga 10mg sent in--let me know if too expensive. If so--we'll adjust below medications. If unable to get Farxiga: increase Semglee 2 units every week until blood sugar less than 120. Will adjust the Humalog as below. Current medications: Metformin 500mg twice daily before meals Bydureon 2mg weekly Semglee 30 units at bedtime Humalog 22 units three times daily before meals For sugars over 150, take 24 units For sugars over 200, take 26 units For sugars over 250, take 28 units For sugars over 300, take 30 units Will update lab today. Verified that he uses [facility]. Aware to check results/results letter in [facility]. Will contact by phone if needed. UTD on DM eye exam. Stressed need for him to increase activity & watch diet. Assessment & Plan (10/28/2022 10:34 AM CDT): Hba1c was Lab Results Component Value Date HGBA1C 6.4 10/28/2022 today, indicating adequate DM control with some hypoglycemia Goal Hba1c and blood glucose explained Diet and exercise were advised Prevention and treatment of hyypoglcyemia were discussed with the patient Blood glucose monitoring : retry FSL Adjustment to medications: Stay on Semglee 30 units at bedtime Humalog 16 units before breakfast and lunch 20 units before dinner For sugars over 200, add 4 units For sugars over 250, add 6 units For sugars over 300, add 8 units Stay on Bydureon. Assessment & Plan (07/22/2022 10:44 AM WOOLEN TESTER): Chronic problem, not at goal. Has been without HL for 6 weeks and unable to check CBGs. He will resume checking and taking HL now that he has prescriptions. We also discussed his weight gain and he needs to work on increasing activity again. Schedule eye exam. Assessment & Plan (04/15/2022 12:36 PM CDT): Chronic problem, not at goal. His blood sugars are widely variable with no consistent patters. In general he tends to be high pC, but can also drop low especially while he is working. Recommend if he's eating prior to starting his shift, that he decrease aC dose by 5-10 units. Otherwise he needs to decrease CHO intake or increase dose if going to have a larger meal. He will work on carb consistency and better insulin adjustment. Assessment & Plan (11/05/2021 4:45 PM CDT): Hba1c was Lab Results Component Value Date HGBA1C 8.5 11/05/2021 today, indicating Inadequate DM control Goal Hba1c and blood glucose explained Diet and exercise were advised Prevention and treatment of hyypoglcyemia were discussed with the patient Blood glucose monitoring : ac and hs or start using FSL cgm Adjustment to medications: Start Lantus, 50 units once a day at bedtime Take Humalog 20 units with each meal For sugars over 150, take 22 units For sugars over 200, take 24 units For sugars over 250, take 26 units For sugars over 300, take 28 units Continue Bydureon Assessment & Plan (05/21/2021 1:01 PM CDT): Hba1c was Lab Results Component Value Date HGBA1C 6.8 05/21/2021 today, indicating adequate DM control, with fluctuating BGs Goal blood glucose levels : 110-130 Target Hba1c : 7 % BG monitoring : continue with CGM withFSL Prevention and treatment of hyypoglcyemia discussed. Insulin regimen adjustments: Continue pump at current settings Continue with bydureon SGLT2 inhibitors , very expensive Assessment & Plan (03/03/2021 9:29 AM CDT): Hba1c was Lab Results Component Value Date HGBA1C 8.0 03/03/2021 today, indicating Inadequate DM control Goal blood sugars in the 120-150 range , with Hb1c under 7.0 % was explained 1800 calorie, consistent carb diet recommended. No more than 30-45 grams of carbs per meal recommended, as well as avoiding high concentrated sweet drinks . 25-45 min daily exercise, combining both aerobic and resistance exercise recommended. The need to monitor blood glucose before meals and bedtime was discussed. Prevention and treatment of hyypoglcyemia discussed. Continue pump at current settings Will try Bydureon. Assessment & Plan (01/06/2021 3:32 PM CDT): A1c 7.3. Will intensify basal and bolus settings Assessment & Plan (10/14/2020 3:34 PM WOOLEN TESTER): Demonstrates appropriate ability to fill and insert infusion set. Understands concepts of basal vs. Bolus and is able to enter BG and carbs into pump. Has been provided with contact information for insulin pump business services representative and how to reach our office after hours if any issues arise with BG. Has injectable basal insulin at home and understands to contact office in the event of pump failure so that appropriate basal dose can be determined. Advised follow up appt in office in one to two weeks so settings can be evaluated and adjusted as indicated. Total face to face time = 60 minutes Greater than 50% of visit was spent counseling pt. Counseling consisted of filling of infusion set, entering carbs and BG levels, troubleshooting hyperglycemia, importance of follow up appointment in 2 weeks. Assessment & Plan (09/03/2020 2:27 PM WOOLEN TESTER): A1c 8.1. Hyperglycemia mostly d/t forgetting to take insulin, especially prandial dose, while caring for . Would likely benefit from insulin pump therapy. Order Omnipod pump and Loulou 2 sensor. Increase Lantus to 58. Continue Humalog 25 and correction 2:50>150. Start Farxiga 10 mg. He will check on preferred coverage. Assessment & Plan (05/01/2020 3:01 PM CDT): Recent A1c 8.3, above goal. Not being attentive to diet or exercise, ++ family stress. Discussed other options for his medication. He will check with insurance about preferred meds. Restart Farxiga 10. Provided with samples. Increase Lantus to 55 units. Provided with instructions to increase to goal q 3- 5 days. Continue to increase this by 2-3 units every 3 days until your morning sugars are under 150. Humalog increase 25 units with meals plus CF 2:50> 150 Will try again for Dexcom as this would be of great benefit for him. Assessment & Plan (09/14/2019 10:31 AM WOOLEN TESTER): A1c 8.4. Not compliant with diet over past 3 months. PC excursions are likely cause of increased A1c. Specific strategies reviewed to improve compliance, specific carb and caloric recommendations per meal, provided on pt instructions. Consider Dexcom which will provide feed back pc. Increase walking to daily. Addendum: Pt will not qualify for CGM without using a CF tid. Assessment & Plan (03/27/2019 10:05 AM CDT): Hba1c was Lab Results Component Value Date HGBA1C 6.2 03/27/2019 today, indicating .121 DM control 1800 calorie, consistent carb diet recommended 25-45 min daily exercise, combining both aerobic and resistance exercise recommended. The need to monitor blood glucose before meals and bedtime was discussed. Dose of basal and prandial insulin adjusted as follows: Lower Lantus to 50 u hs and Humalog, 22 u bid Prevention and treatment of hyypoglcyemia discussed. Assessment & Plan (01/11/2019 10:04 AM CDT): Your Hba1c today was: Lab Results Component Value Date HGBA1C 6.8 01/11/2019 meaning a 3 month average sugar of : 140 Your goal hba1c is under 7.0 to prevent detention diabetes complications ( eye , kidney and nerve damage ) . Your goal sugars are in the 90-130 range Exercise recommendations: It is recommended that you do daily aerobic ( walking, riding a bike, swimming ) and resistance exercises ( light weight lifting, resistance band stretching ) for at least 30 minutes , most days of the week. If you can not walk, chair exercises for 10-15 min a day would help tremendously. As little as 15-20 minutes exercise , in one or two sessions a day, is still very helpful to improve your diabetes control . Diet recommendations: Eat small portion meals, trying not to consume more than 1800 calories a day . Try to eat not more than than 2 servings of carbs ( starches ) wiith your meals. Avoid soft drinks, including regular sodas , fruit juices and sweetened tea. Drink water instead. Eat plenty of green and leafy vegetables, including salads. Medications: Take your medications regularly. Setting phone alarms can help . Keep your medication on the kitchen dinner table, by the bedside table or by the sink where they are visible to you. If you are taking insulin : the insulin that you are currently using does not need to be refrigerated. Keep it where you can see it . Monitor your sugar levels with finger sticks regularly and keep a log sheet or book. Bring your sugar meter and /or a log book or log sheet to every office visit. Stop Humulin 70/30 Increase Lantus to 60 units at bedime Take Humalog, 24 units with each meal For sugars over 180, take 28 units For sugars over 240, take 30 units For sugar over 300, take 34 units Stay on Farxiga and Metformin Assessment & Plan (10/03/2018 10:10 AM WOOLEN TESTER): Your Hba1c today was: Lab Results Component Value Date HGBA1C 9.9 10/03/2018 meaning a 3 month average sugar of : 244 Your goal hba1c is under 7.0 to prevent detention diabetes complications ( eye , kidney and nerve damage ) . Your goal sugars are in the 90-130 range Daily aerobic ( walking, riding a bike, swimming ) and resistance exercises ( light weight lifting, resistance band stretching ) for at least 30 minutes is recommended If you can not walk, chair exercises for 10-15 min a day would help tremendously. As little as 15-20 minutes exercise , in one or two sessions a day, is still very helpful to improve your diabetes control . Eat small portion meals, trying not to consume no more than 1800 calories a day . Try to eat not more than than 3 servings of carbs ( starches ) wiith your meals. Avoid soft drinks, including regular sodas , fruit juices and sweetened tea. Drink water instead. Eat plenty of green and leafy vegetables, including salads. Take your medications regularly. Setting phone alarms can help . Keep your medication on the kitchen dinner table, by the bedside table or by the sink where they are visible to you. The insulin that you are currently using does not need to be refrigerated. Keep it where you can see it . Monitor your sugar levels with finger sticks regularly and keep a log sheet or book. Bring your sugar meter and /or a log book or log sheet to every office visit. Hold Humulin 70/30 Take Lantus, 55 units at bedtime Take Humalog, 12 units with each meal For sugars over 180, take 14 units For sugars over 240, take 16 units For sugars over 320, take 18 units Stay on Metformin and Farxiga. Assessment & Plan (07/11/2018 10:38 AM WOOLEN TESTER): Your Hba1c today was: Lab Results Component Value Date HGBA1C 8.9 07/11/2018 meaning a 3 month average sugar of : Your goal hba1c is under 7.0 to prevent salvage determiner diabetes complications ( eye , kidney and nerve damage ) . Your goal sugars are in the 90-130 range Daily aerobic ( walking, riding a bike, swimming ) and resistance exercises ( light weight lifting, resistance band stretching ) for at least 30 minutes is recommended If you can not walk, chair exercises for 10-15 min a day would help tremendously. As little as 15-20 minutes exercise , in one or two sessions a day, is still very helpful to improve your diabetes control . Eat small portion meals, trying not to consume no more than 1800 calories a day . Try to eat not more than than 3 servings of carbs ( starches ) wiith your meals. Avoid soft drinks, including regular sodas , fruit juices and sweetened tea. Drink water instead. Eat plenty of green and leafy vegetables, including salads. Take your medications regularly. Setting phone alarms can help . Keep your medication on the kitchen dinner table, by the bedside table or by the sink where they are visible to you. The insulin that you are currently using does not need to be refrigerated. Keep it where you can see it . Monitor your sugar levels with finger sticks regularly and keep a log sheet or book. Bring your sugar meter and /or a log book or log sheet to every office visit. Lower Novolog 70/30 insulin by 5 units Stay on [facility] Assessment & Plan (06/06/2018 3:32 PM CDT): Your Hba1c today was: Lab Results Component Value Date HGBA1C 13.5 06/06/2018 meaning a 3 month average sugar of over : 300 Your goal hba1c is under 7.0 to prevent salvage determiner diabetes complications ( eye , kidney and nerve damage ) . Your goal sugars are in the 90-130 range Daily aerobic ( walking, riding a bike, swimming ) and resistance exercises ( light weight lifting, resistance band stretching ) for at least 30 minutes is recommended If you can not walk, chair exercises is very acceptable. As little as 15-20 minutes exercise , in one or two sessions a day, is still very helpful and will help to improve your diabetes control . Eat small portion meals, no more than 1800 calories Diet Try to eat not more than than 2-3 servings of carbs ( starches ) wiith your meals. Avoid soft drinks, including regular sodas , fruit juices and sweetened tea. Drink water instead. Eat plenty of green and leafy vegetables, including salads. Take your medications regularly,including your insulin injections. Monitor your sugar levels with finger sticks regularly and keep a log sheet or book. Bring your sugar meter and /or a log book or log sheet to every office visit. Stay on Novolin 70/30 , 30 units before breakfast and dinner. For sugars under 100, take only 20 units For sugars over 250, take 35 units. Restart Farxiga, 10 mg daily Assessment & Plan (03/16/2018 4:34 PM CDT): BG improved on Humalog but still needs to focus mainly on modifying diet. Continue same Lantus and Humalog. On work days decrease the dose to 10 units if your sugar is under 200 and 15 unit if above 200 to avoid hypoglycemia and rebound highs from over treatment. BG goals reviewed. Assessment & Plan (02/14/2018 10:11 AM CDT): Your Hba1c today was: Lab Results Component Value Date HGBA1C 9.5 02/14/2018 meaning a 3 month average sugar of : 230 Your goal hba1c is under 7.0 to prevent detention diabetes complications ( eye , kidney and nerve damage ) . Your goal sugars are in the 90-130 range Daily aerobic ( walking, riding a bike, swimming ) and resistance exercises ( light weight lifting, resistance band stretching ) for at least 30 minutes is recommended If you can not walk, chair exercises is very acceptable. As little as 15-20 minutes exercise , in one or two sessions a day, is still very helpful and will help to improve your diabetes control . Eat small portion meals, no more than 1800 calories Diet Try to eat not more than than 2-3 servings of carbs ( starches ) wiith your meals. Avoid soft drinks, including regular sodas , fruit juices and sweetened tea. Drink water instead. Eat plenty of green and leafy vegetables, including salads. Take your medications regularly,including your insulin injections. Monitor your sugar levels with finger sticks regularly and keep a log sheet or book. Bring your sugar meter and /or a log book or log sheet to every office visit. Restart Lantus Take Humalog , 15 units with breakfast and dinner For sugars over 200, take 20 units Assessment & Plan (11/10/2017 9:47 AM CDT): A1c is still going up to 8.7 now. Increase Lantus by 2 units every week until your morning sugars are always under 150. Your diet is the real issue with maintain blood sugar control. Do not eat any more than 60 grams of carb and 350 calories per meal. This is important. Do not eat closer than 4 hours apart. Get the book Calorie Jose Antonio and follow. Schedule appointment with supervisor assembly. Call me to let know where you go so I can send a referral. Given new meter Assessment & Plan (08/04/2017 10:49 AM WOOLEN TESTER): A1c 8.3. No change to medication today. Needs to focus on not eating late and and reducing portions. Will adjust if no improvement next Ov. Foot care discussed. Assessment & Plan (05/05/2017 12:16 PM CDT): Hba1c was 8.0 today, indicating suboptimal DM control 1800 calorie, consistent carb diet recommended 30 min daily exercise, combining both aerobic and resistance exercise is strongly recommended and needed as part of diabetes management plan. The need to monitor blood glucose before meals and bedtime was discussed. Take prandial insulin before meals based on carb intake and blood glucose readings. Prevention and treatment of hyypoglcyemia discussed. Assessment & Plan (01/28/2017 10:45 AM CDT): Hba1c was 8.0 today, indicating inadequate DM control Continue Current medications 1500 calorie, consistent carb diet recommended 30 min daily aerobic and resistance exercise . Foot care discussed. Prevention and treatment of hypoglycemia was discussed. Hypertension associated with diabetes 09/07/2013 Overview (11/19/2016): HYPERTENSION NOS Assessment & Plan (04/03/2024 10:57 AM CDT): Chronic problem. Controlled on current Lisinopril 40mg daily, HCTZ 25mg daily. No changes at this time. Assessment & Plan (11/17/2023 11:42 AM CDT): Chronic, well controlled Continue current meds, including Lisinopril Assessment & Plan (06/07/2023 11:38 AM CDT): Chronic problem. Controlled on current Lisinopril 40mg daily, HCTZ 25mg daily. No changes at this time. Assessment & Plan (02/24/2023 10:04 AM CDT): Chronic problem. Controlled on current Lisinopril 40mg daily, HCTZ 25mg daily. No changes at this time. Assessment & Plan (07/22/2022 10:37 AM WOOLEN TESTER): Controlled on current medications, no changes. Assessment & Plan (04/15/2022 10:58 AM CDT): Controlled on current medications, no changes. Assessment & Plan (05/21/2021 1:02 PM CDT): BP at goal On Quinapril Check MA Assessment & Plan (01/06/2021 11:41 AM CDT): Controlled on current medications. Continue plan. Assessment & Plan (09/03/2020 2:23 PM WOOLEN TESTER): Controlled on current medications. Continue plan. Assessment & Plan (08/19/2019 2:26 PM WOOLEN TESTER): Controlled on current medications. Continue plan. Assessment & Plan (03/27/2019 10:05 AM CDT): Goal blood pressure is less than 140/85 Low salt diet recommended Daily aerobic exercise Continue current meds, including DENNIS-I or ARB Assessment & Plan (01/11/2019 10:04 AM CDT): Goal blood pressure is less than 140/85 Low salt diet recommended Daily aerobic exercise Continue current meds, including DENNIS-I or ARB Assessment & Plan (10/03/2018 10:11 AM WOOLEN TESTER): Goal blood pressure is less than 140/85 Low salt diet recommended Daily aerobic exercise Continue current meds, including DENNIS-I or ARB Assessment & Plan (03/16/2018 4:32 PM CDT): Controlled on current medications. Assessment & Plan (02/14/2018 10:12 AM CDT): Goal blood pressure is less than 140/85 Low salt diet recommended Daily aerobic exercise Continue current meds, including EDNNIS-I or ARB Assessment & Plan (11/13/2017 3:33 PM CDT): Controlled on current medications. Assessment & Plan (08/04/2017 10:50 AM WOOLEN TESTER): Controlled on current medications. Assessment & Plan (05/05/2017 12:13 PM CDT): Goal blood pressure is less than 140/85 Low salt diet recommended Daily aerobic exercise Continue current meds, including DENNIS-I or ARB Assessment & Plan (01/28/2017 10:46 AM CDT): Goal blood pressure is less than 140/85 Low salt diet recommended Daily aerobic exercise Continue current meds, including DENNIS-I or ARB Check BMP, microalbumin Resolved Problems Problem Noted Date Diagnosed Date Resolved Date Body mass index 40.0-44.9, adult ([facility]) 04/03/2024 04/03/2024 Class 3 severe obesity due t o excess calories with serious comorbidity and body mass index (BMI) of 45.0 to 49.9 in adult 02/24/2023 Assessment & Plan (02/24/2023 10:29 AM CDT): Fairly sedentary. Needs to increase activity. Discussed healthy diet and importance of regular physical activity (20- 30min/day, 150min/wk). Morbid (severe) obesity due to excess calories 07/22/2022 02/24/2023 Assessment & Plan (07/22/2022 10:42 AM WOOLEN TESTER): Not at goal, work on diet and exercise. Consider change to Ozempic or Mounjaro when they become available again. Body mass index (BMI) 45.0-49.9, adult 07/22/2022 02/24/2023 Insulin pump status 10/14/2020 01/15/20 22 Assessment & Plan (01/06/2021 3:31 PM CDT): Insulin pump setting calculations as follows: Basal 2.0 units per hours = 48 units TDB Bolus: IC 4, SF 18, T 100 AI 4 Assessment & Plan (10/22/2020 3:29 PM WOOLEN TESTER): Lower basal to 1.9 = 45.6 units TDB Bolus: IC 5, SF 20, T 100 AI 4 Assessment & Plan (10/14/2020 3:33 PM WOOLEN TESTER): Insulin pump setting calculations as follows: Basal 2.0 units per hours = 48 units TDB Bolus: IC 5, SF 20, T 120 AI 4 BMI 40.0-44.9, adult 05/05/2017 023 Assessment & Plan (09/03/2020 2:23 PM WOOLEN TESTER): Importance of following diet and exercising discussed. Assessment & Plan (05/01/2020 2:57 PM CDT): Importance of following diet and exercising discussed. Assessment & Plan (08/19/2019 2:27 PM WOOLEN TESTER): Importance of following diet and exercising discussed. Pure hypercholesterolemia 09/07/2013 Overview (11/19/2016): PURE HYPERCHOLESTEROLEM Assessment & Plan (11/13/2017 3:33 PM CDT): Continue simvastatin Assessment & Plan (08/04/2017 10:50 AM WOOLEN TESTER): Continue statin Assessment & Plan (05/05/2017 12:13 PM CDT): Goal of treatment , LDL cholesterol less than 100 ( less than 70 in patients with history of heart attacks and / or strokes ) NonHDL cholesterol goal less than 130 ( less than 100 in patients with history of heart attacks and / or strokes ) Continue statin therapy Assessment & Plan (01/28/2017 10:45 AM CDT): Goal of treatment , LDL cholesterol less than 100 ( less than 70 in patients with history of heart attacks and / or strokes ) NonHDL cholesterol goal less than 130 / 100 Lipids at goal. Continue statin therapy Check lipid profile Low cholesterol diet, exercise advised. Obesity, Class III, BMI 40-4 9.9 (morbid obesity) 08/31/2010 02/24/2023 Overview (11/19/2016): OBESITY NOS Assessment & Plan (01/06/2021 11:41 AM CDT): Importance of following diet and exercising discussed. Assessment & Plan (03/16/2018 4:31 PM CDT): Re-emphasized importance of weight loss and following meal plan. Assessment & Plan (11/13/2017 3:32 PM CDT): Caloric intake exceeds activity expenditure. Advised review with RD. Assessment & Plan (08/04/2017 10:50 AM WOOLEN TESTER): Needs to reduce portions especially of sweets. Holiday strategies discussed. Social History Tobacco Use Types Packs/Day Years Used Date Smoking Tobacco: Former Smokeless Tobacco: Never Alcohol Use Standard Drinks/Week Comments Yes 0 (1 standard drink = 0.6 oz pur e alcohol) PHQ-2 Answer Date Recorded PHQ-2 Total Score (If total score is 3 or more points, staff should administer the PHQ-9) 0 11/05/2021 Sex and Gender Information Value Date Recorded Sex Assigned at Not on file Legal Sex Male 10:32 AM WOOLEN TESTER Gender Identity Not on file Sexual Orientation Not on file Last Filed Vital Signs Vital Sign Reading Time Taken Comments Blood Pressure 110/62 04/03/2024 10:26 AM CDT Pulse 80 04/03/2024 10:26 AM CDT Temperature - - Respiratory Rate 16 04/03/2024 10:26 AM CDT Oxygen Saturation - - Inhaled Oxygen Concentration - - Weight 127 kg (280 lb) 04/03/2024 10:26 AM CDT Height 170.2 cm (5' 7.01 ) 04/03/2024 10:26 AM C DT Body Mass Index 43.84 04/03/2024 10:26 AM CDT Plan of Treatment Not on file Procedures Procedure Name Priority Date/Time Associated Diagnosis Comments ALBUMIN CREATININE RATIO, URINE Routine 04/03/2024 11:41 AM CDT Type 2 diabetes mellitus with hyperglycemia, with long-term current use of insulin (HCC) POCT HEMOGLOBIN A1C Routine 04/03/2024 1 0:30 AM CDT Type 2 diabetes mellitus with hyperglycemia, with long-term current use of insulin (HCC) HM DIABETES EYE EXAM Routine 10/05/2023 8:53 AM WOOLEN TESTER BASIC METABOLIC PANEL Routine 07/01/2023 10:26 AM WOOLEN TESTER LIPID PANEL Routine 06/22/2023 12:03 PM WOOLEN TESTER from Last 3 Months or Most Recently Relevant to Health Maintenance Results * Albumin Creatinine Ratio, Urine (04/03/2024 11:41 AM CDT) Albumin Ur 12.6 mg/L Comment: Interpretive Data No reference range established. Current interpretive data was last revised 2018. Creatinine Ur 106.6 mg/dL JOYCE Comment: Interpretive Data No reference range established. Current interpretive data was last revised 2018. Albumin Creatinine Ratio, Ur 12 1 - 29 mg/g JOYCE MOREAU Urine 04/03/2024 11:4 1 AM CDT 04/03/2024 8:22 PM CDT us Ashley Yoder NP LAB URINE ORDERABLES Michelle lugo Result JOYCE [id number] [address] [place] [address] * (ABNORMAL) POCT hemoglobin A1c (04/03/2024 10:30 AM CDT) Pathologist [facility] Hemoglobin A1C, POC 6.1 4.0 - 5.6 % Blood 04/03/2024 10:3 0 AM CDT Ashley Yoder SAP BW CONSULTANT POINT OF CARE TEST ORDERA BLES Final Result * (ABNORMAL) DIABETES EYE EXAM (10/05/2023 8:53 AM WOOLEN TESTER) Result [facility] Historical Provider HEALTH MAINTENANCE Final Result * (ABNORMAL) Basic metabolic panel (07/01/2023 10:26 AM WOOLEN TESTER) [facility] SCRIBED Sodium 136 136 - 145 mmol/L EXTERNAL LAB SCRIBED Potassium 5.2(A) 3.5 - 5.1 mmol/L EXTERNAL LAB SCRIBED Chloride 103 100 - 108 mmol/L EXTERNAL LAB SCRIBED Carbon Dioxide 26.2 21 - 32 mmol/L EXTERNAL LAB SCRIBED Anion Gap 6.8 5 - 15 mmol/L EXTERNAL LAB SCRIBED Urea Nitrogen (BUN) 34(A) 7 - 18 mg/dl EXTERNAL LAB SCRIBED Creatinine 1.80(A) 0.7 - 1.3 mg/dl EXTERNAL LAB SCRIBED Glucose 329(A) 70 - 99 mg/dl EXTERNAL LAB SCRIBED Calcium 8.9 8.5 - 10.1 mg/dl EXTERNAL LAB SCRIBED eGFR in NonAfrican Panamanian 40 >90 - NA EXTERNAL LAB Blood 07/01/2023 10:2 6 AM WOOLEN TESTER Result [facility] Historical Provider LAB BLOOD ORDERABLES Edit ed Result - Final EXTERNAL LAB * (ABNORMAL) Lipid panel (06/22/2023 12:03 PM WOOLEN TESTER) [facility] SCRIBED Cholesterol, Total 135 <200 - NA EXTERNAL LAB SCRIBED HDL 42 >40 - NA EXTERNAL LAB SCRIBED LDL 61 <100 - NA EXTERNAL LAB SCRIBED Triglycerides 162 <150 - NA EXTERNAL LAB Blood 06/22/2023 12:0 3 PM WOOLEN TESTER us Historical Provider LAB BLOOD ORDERABLES Edit ed Result - Final EXTERNAL LAB from Last 3 Months or Most Recently Relevant to Health Maintenance [place] [address] [facility] Care Teams Top Lifter Relationship Specialty Start Date End Date Kajal French PA PCP - General Physician Vise Hand 09/03/20
--- OUTSIDE RECORDS SUMMARY | 2024-11-08 08:08 | XMS_ITS | Encounter Summary ---
Author Organization [facility] Address [address] [place] [address] Phone Care Team Providers Care Director Of Neighborhood Service Center Name Role Phone Kajal French PAC Primary Care Provider +- [phone] Aman Mark MD Unavailable [phone] Reason for Visit * Reason Comments Medication Refill Encounter Details Date Type Department Care Team (Late st Contact Info) Description 01/08/2023 Refill [facility] [address] [place] [address] Nelly Landry, MONEY ROOM SUPERVISOR, BUILDING EQUIPMENT OPERATOR [address] [place] [address] Medication Refill Social History Tobacco [...] suspected to have Coronavirus/COVID-19? No / Unsure 01/06/2023 9:53 AM CDT documented as of this encounter Miscellaneous Notes * Telephone Encounter - Marj Patricio RN - 01/11/2023 11:12 AM CDT Refill request from pharmacy. Please fill if appropriate. documented in this encounter Plan of Treatment Upcoming Encounters Date Type Department Care Team (Late st Contact Info) Description 01/24/2025 10:45 AM CDT Office Visit [facility] [address] [address] Aman Mark MD [address] [place] [phone] documented as of this encounter Visit Diagnoses Diagnosis Anemia, unspecified type documented in this encounter Additional Health Concerns Assessment Noted Time PHQ-9 Depression Total Score: 1 04/30/20 21 2:55 PM CDT documented as of this encounter Care Teams Director Of Neighborhood Service Center Relationship Specialty Start Date End Date Kajal French, [place] PCP - General Physician Fryer Line Helper 01/28/21 Aman Mark MD [address] [place] [phone] Consulting Physician Oncology 01/28/21 documented as of this encounter
--- OUTSIDE RECORDS SUMMARY | 2024-11-08 08:08 | XMS_ITS | Encounter Summary ---
Author Organization [facility] Address [address] [place] [address] Phone Care Team Providers Care Assembly Adjuster Name Role Phone Kajal French PAC Primary Care Provider +- [phone] Aman Mark MD Unavailable [phone] Reason for Visit * Reason Comments Medication Refill Encounter Details Date Type Department Care Team (Late st Contact Info) Description 10/10/2022 Refill [facility] [address] [place] [address] Nelly Landry, MANAGER COMMUNITY, CORE BLOWER [address] [place] [address] Medication Refill Social History Tobacco [...] suspected to have Coronavirus/COVID-19? No / Unsure 09/16/2022 9:54 AM TECHNICAL APPLICATIONS SCIENTIST documented as of this encounter Miscellaneous Notes * Telephone Encounter - Nelly Lanier APRN, CORE BLOWER - 10/11/2022 9:43 AM TECHNICAL APPLICATIONS SCIENTIST Okay to refill. NICAL APPLICATIONS SCIENTIST * Telephone Encounter - Ebony Montgomery, RN - 10/11/2022 8:01 AM TECHNICAL APPLICATIONS SCIENTIST Refill request from pharmacy. Please fill if appropriate.' NICAL APPLICATIONS SCIENTIST documented in this encounter Plan of Treatment Upcoming Encounters Date Type Department Care Team (Late st Contact Info) Description 01/24/2025 10:45 AM CDT Office Visit [facility] [address] [address] Aman Mark MD [address] [place] [address] documented as of this encounter Visit Diagnoses Not on filedocumented in this encounter Additional Health Concerns Assessment Noted Time PHQ-9 Depression Total Score: 1 04/30/20 21 2:55 PM CDT documented as of this encounter Care Teams Assembly Adjuster Relationship Specialty Start Date End Date Kajal French, [place] PCP - General Physician Interventional Radiologist 01/28/21 Aman Mark MD [address] [place] [address] Consulting Physician Oncology 01/28/21 documented as of this encounter
--- OUTSIDE RECORDS SUMMARY | 2024-11-08 08:08 | XMS_ITS | Clinical Summary ---
Author Organization [facility] Address [address], [facility] [address] [place] [address] Phone Care Team Providers Care Extractor Machine Operator Name Role Phone Kajal French Primary Care Provider [phone] Aman Mark MD Unavailable [phone] Allergies Active Allergy Reactions Criticality Noted Date Comments Celecoxib Hives,Other (see Comments) Medium 02/02/2021 Reaction: Hives, Hydrochlorothiazide Rash Medium 09/22/2022 Morphine Other (see Comments) Medium 02/02/2021 Patients states it made him verbally abusive Patients states it made him verbally abusive Wound Dressing Adhesive Rash Medium 12/21/2022 Bandaid Medications aspirin EC 81 MG Tablet Delayed Response Take 81 mg by mouth. 2 Active atorvastatin (LIPITOR) 40 MG Tablet TAKE 1 TABLET BY MOUTH NIGHTLY AT BEDTIME 1 Active Canagliflozin 300 MG Tablet Take 300 mg by mouth. 0 Active Dapagliflozin Propanediol 10 MG Tablet Take 10 mg by mouth. 8 Active DULoxetine (CYMBALTA) [address] Particles TAKE 1 CAPSULE BY MOUTH ONCE DAILY 1 Active HumaLOG 100 UNIT/ML Solution 1 Active metFORMIN (GLUCOPHAGE-XR) 500 MG TABLET SR 24 HR 1 Active tamsulosin (FLOMAX) 0.4 MG Capsule TAKE 1 CAPSULE BY MOUTH ONCE DAILY 1 Active diclofenac (VOLTAREN) 75 MG Tablet Delayed Response diclofenac sodium 75 mg tablet,delayed release Active glimepiride (AMARYL) 4 MG Tablet glimepiride 4 mg tablet Active simvastatin (ZOCOR) 40 MG Tablet simvastatin 40 mg tablet Active hydroCHLOROthia zide 25 MG Tablet TAKE 1 TABLET BY MOUTH EVERY DAY IN THE MORNING 3 Active OneTouch Verio Strip USE TO CHECK BLOOD SUGAR 3 TIMES DAILY. 2 Active allopurinol (ZYLOPRIM) 300 MG Tablet Take 1 Tablet by mouth daily. 2 Active cyanocobalamin (VITAMIN B-12) 1000 MCG/ML Solution 3 Active albuterol 108 (90 Base) MCG/ACT Aerosol Solution INHALE 2 PUFFS INTO THE LUNGS EVERY 6 HOURS NEEDED FOR WHEEZE 3 Active ferrous sulfate 325 (65 Fe) MG TabletIndicatio ns:Anemia, unspecified type TAKE 1 TABLET BY MOUTH EVERY DAY 30 Tablet 1 3 Active DULoxetine (CYMBALTA) [address] Particles Take 1 capsule in the evening along with the 60 mg in the morning 4 Active gabapentin (NEURONTIN) 300 MG Capsule Take 1 Capsule by mouth 3 times daily. 4 Active Lantus SoloStar 100 UNIT/ML Solution Pen-injector 60 Units by Subcutaneous route. 4 Active lisinopril (PRINIVIL, ZESTRIL) 20 MG Tablet Take 1 Tablet by mouth daily. 4 Active Active Problems Problem Noted Date Diagnosed Date B12 deficiency due to diet 02/26/2021 Encounters Date Type Department Care Team Description 10/25/2024 11:15 AM CDT Lab [facility] [address] [place] [phone] NurseAshlyn Holden B12 deficiency due to diet (Primary Dx) 10/25/2024 10:15 AM CDT Office Visit [facility] [address] [place] [address] Laurie Pickett, PROCUREMENT MANAGER, DAMPENER OPERATOR Iron deficiency anemia, unspecified iron deficiency anemia type (Primary Dx); B12 deficiency due to diet 10/25/2024 Travel from Last 3 Months Immunizations Immunization Administration Dates Next Due Covid-19, Mrna, Lnp-s, PF, 1 00 mcg/0.5 mL Dose (Moderna) 12/30/2020,12/04/2020 Influenza Vaccine 04/20/2016 Influenza, High-dose, Quadrivalent 06/04/2019 Influenza, Seasonal, Injectable, Undefined 09/20 Influenza, high-dose, trivalent, PF 06/04/2019 Pneumococcal Vaccine - 13 Valent 06/04/2019,03/16 Pneumococcal Vaccine Adult - 23 Valent 8 Zoster Vaccine Recombinant 07/24/2018,12/23/2017 Family History Medical History Relation Name Comments Heart Attack Father Heart Disease Father Diabetes Maternal Grandmother Alzheimer's Disease Mother Cancer Mother Chronic Obstructive Pulmonary Disease Sister Relation Name Status Comments Father Maternal Grandmother Mother breast Sister Social History Tobacco Use Types Packs/Day Years Used Date Smoking Tobacco: Former Cigarettes Q uit: 1995 Smokeless Tobacco: Never Tobacco Cessation:Counseling Given: Not Answered Alcohol Use Standard Drinks/Week Comments Yes 0 [...] Sign Reading Time Taken Comments Blood Pressure 132/80 10/25/2024 10:48 AM CDT Pulse 67 10/25/2024 10:48 AM CDT Temperature 36.3 C (97.3 F) 10/25/2024 10:48 AM CDT Respiratory Rate 18 10/25/2024 10:4 8 AM CDT Oxygen Saturation 96% 10/25/2024 10: 48 AM CDT Inhaled Oxygen Concentration - - Weight 130.4 kg (287 lb 6.4 oz) 025 10:48 AM CDT Height 172.7 cm (5' 8 ) 10/25/2024 10:4 8 AM CDT Body Mass Index 43.7 10/25/2024 10:48 AM CDT Plan of Treatment Upcoming Encounters Date Type Department Care Team (Late st Contact Info) Description 01/24/2025 10:45 AM CDT Office Visit [facility] [address] [facility] [address] [place] [address] Aman Mark MD [address] [place] [address] Health Maintenance Due Date Last Done Comments TdaP Immunization 1954 Colonoscopy 1999 Colorectal Cancer Screening 1999 Cologuard 2004 Immunochemical Fecal Occult Blood 2004 AAA Screening Ultrasound 2019 SARS-COV-2 Immunization ( season) 2025 09/12/2024, 05/17/2023, 08/17/2022, Additional history exists Zoster Immunization Completed 07/24/2018, 8 Hepatitis C Virus (HCV) Screening Completed 02/02/2021, 10/09/2019 DTaP/Tdap/Td Immunization Discontinued 06/18/2021 Pneumococcal Immunization (50+ years) Completed 04/29/2023, 06/04/2019, 12/23/2017, Additional history exists Respiratory Syncytial Virus (RSV) Immunization (Adult) Completed 05/17/2023 Influenza Immunization Completed , 04/29/2023, 06/02/2022, Additional history exists Hepatitis B Immunization Aged Out No longer eligible based on patient's age to complete this topic Meningococcal Immunization (ACWY) Aged Out No longer eligible based on patient's age to complete this topic Rotavirus Immunization Aged Out No lo nger eligible based on patient's age to complete this topic Procedures Procedure Name Priority Date/Time Associated Diagnosis Comments COMPLETE BLOOD COUNT (CBC) WITH DIFF Routine 10/25/2024 3:53 PM CDT Iron deficiency anemia, unspecified iron deficiency anemia type B12 deficiency due to diet CMP (COMPREHENSIVE METABOLIC PANEL) Routine 10/25/2024 3:53 PM CDT Iron deficiency anemia, unspecified iron deficiency anemia type B12 deficiency due to diet VITAMIN B12 Routine 10/25/2024 3:53 PM CDT Iron deficiency anemia, unspecified iron deficiency anemia type B12 deficiency due to diet FOLIC ACID (FOLATE) Routine 10/25/2024 3 :53 PM CDT Iron deficiency anemia, unspecified iron deficiency anemia type B12 deficiency due to diet FERRITIN Routine 10/25/2024 3:53 PM CDT Iron deficiency anemia, unspecified iron deficiency anemia type B12 deficiency due to diet IRON W/ IRON BINDING CAPACITY OH Routine 10/25/2024 3:53 PM CDT Iron deficiency anemia, unspecified iron deficiency anemia type B12 deficiency due to diet HEPATITIS C ANTIBODY Routine 02/02/2021 10:32 AM CDT Thrombocytopenia (HCC) from Last 3 Months or Most Recently Relevant to Health Maintenance Results * (ABNORMAL) IRON W/ IRON BINDING CAPACITY [place] (10/25/2024 3:53 PM CDT) IRON 65 50 - 212 ug/dL [facility] UIBC 275 155 - 355 ug/dL [facility] TIBC 340 261 - 478 ug/dl [facility] % Saturation 19(L) 20 - 50 % [facility] 10/25/2024 3:53 PM CDT Narrative [facility] - 10/26/2024 11:29 AM CDT Release to patient->Immediate us Laurie Pickett PROCUREMENT MANAGER, DAMPENER OPERATOR LAB SEND OUTS Final Result [facility] [place] [address], * VITAMIN B12 (10/25/2024 3:53 PM CDT) Vitamin B12 >1,500 180 - 914 pg/mL [facility] Blood 10/25/2024 3:53 PM CDT Narrative [facility] 10/26/2024 2:42 PM CDT Release to patient->Immediate IS THE PATIENT REQUIRED TO BE FASTING FOR 12 HOURS?->No us Laurie Pickett PROCUREMENT MANAGER, DAMPENER OPERATOR CHEMISTRY ORDERABLES Final Result Performing Organization Address City/[facility]/ZIP Co de Phone Number [facility] [place] [address], [place] [phone] * FOLIC ACID (FOLATE) (10/25/2024 3:53 PM CDT) Folate 10.42 >=5.90 ng/mL [facility] Blood 10/25/2024 3:53 PM CDT [facility] 10/26/2024 2:42 PM CDT Release to patient->Immediate us Laurie Pickett APRN, DAMPENER OPERATOR CHEMISTRY ORDERABLES Final Result Performing Organization Address City/[facility] Co de Phone Number [facility] [place] [address], [place] [phone] * FERRITIN (10/25/2024 3:53 PM CDT) Ferritin 65 24 - 336 ng/mL [facility] Blood 10/25/2024 3:53 PM CDT [facility] 10/26/2024 2:42 PM CDT Release to patient->Immediate us Laurie Pickett PROCUREMENT MANAGER, DAMPENER OPERATOR CHEMISTRY ORDERABLES Final Result Performing Organization Address City/[facility]/ZIP Co de Phone Number [facility] [place] [address], [place] [phone] * (ABNORMAL) CMP (COMPREHENSIVE METABOLIC PANEL) (10/25/2024 3:53 PM CDT) Glucose 151(H) 70 - 105 mg/dL [facility] Blood Urea Nitrogen 27(H) 7 - 25 mg/dL [facility] Creatinine 1.5(H) 0.7 - 1.3 mg/dL [facility] Sodium 137 136 - 145 mEq/L [facility] Potassium 5.2(H) 3.5 - 5.1 mEq/L [facility] Chloride 108(H) 98 - 107 mEq/L [facility] Bicarbonate 26 21 - 31 mEq/L [facility] Total Bilirubin 0.5 0.3 - 1.0 mg/dL [facility] Alk. Phosphatase 77 34 - 104 U/L [facility] Aspartate Aminotransferase 11(L) 13 - 39 U/L [facility] Alanine Aminotransferase 7 7 - 52 U/L [facility] Total Protein 6.8 6.4 - 8.9 g/dL [facility] Albumin 4.2 3.5 - 5.7 g/dL [facility] Calcium 9.5 8.6 - 10.3 mg/dL [facility] Anion Gap 8.2 7.0 - 15.0 mEq/L [facility] Globulin 2.6 2.0 - 3.5 g/dL [facility] EGFR 50(L) >60 ml/min/1. 73m2 [facility] Comment: This eGFR is calculated using 2020 CKD-EPI Creatinine equation without race modifier based on the NKF-ASN task force recommendations Equation: cNNT=140*min(SCr/k,1)a*max(SCr/k,1)-1.200*0.9938Age*1.012 (if female), where SCr is serum creatinine, k is 0.7 for females and 0.9 for males, and a is -0.241 for females and -0.302 for males Blood 10/25/2024 3:53 PM CDT Narrative [facility] - 10/26/2024 11:39 AM CDT Release to patient->Immediate IS THE PATIENT REQUIRED TO BE FASTING FOR 8 HOURS?->No Laurei Pickett PROCUREMENT MANAGER, DAMPENER OPERATOR CHEMISTRY ORDERABLES Final Result [facility] [place] [address], [place] [phone] * (ABNORMAL) COMPLETE BLOOD COUNT (CBC) WITH DIFF (10/25/2024 3:53 PM CDT) WBC 4.8 4.0 - 10.0 10*3/uL [facility] HGB 14.4 13.7 - 17.5 g/dL [facility] HCT 45.5 40.1 - 51.0 % [facility] PLT 120(L) 163 - 369 10*3/uL [facility] MPV 10.1 9.4 - 12.4 fL [facility] RBC 4.64 4.63 - 6.08 10*6/uL [facility] MCV 98(H) 79 - 95 fL [facility] MCH 31.0 25.6 - 32.2 pg [facility] MCHC 31.6(L) 32.2 - 36.5 g/dL [facility] RDW 14.4 11.6 - 14.4 % [facility] Absolute Neutrophil Count 3,456 cells/uL [facility] Absolute Seg Count 3,456 1,440 - 6,600 cells/uL [facility] Absolute Lymph Count 768 760 - 4,000 cells/uL [facility] Absolute [place] Count 336 160 - 1,200 cells/uL [facility] Absolute Eos Count 240 0 - 300 cells/uL [facility] Segmented Neutrophils 72(H) 36 - 66 % [facility] Lymphocytes 16(L) 19 - 40 % [facility] Monocytes 7 4 - 12 % [facility] Eosinophils 5(H) 0 - 3 % [facility] WBC Estimate Normal [facility] Platelet Estimate Low [facility] RBC Morphology Abnormal CANCE R [facility] Macrocytosis 1+ [facility] Blood 10/25/2024 3:53 PM CDT Narrative [facility] - 10/26/2024 9:18 AM CDT Release to patient->Immediate Laurie Pickett PROCUREMENT MANAGER, DAMPENER OPERATOR HEMATOLOGY ORDERABLES Final Result [facility] [place] [address], * HEPATITIS C ANTIBODY (02/02/2021 10:32 AM CDT) HCV AB <0.1 0.0 - 0.9 S/CO RATIO REPLACED BY [facility] COMMENT: COMMENT REPLACED BY [facility] Comment: NON REACTIVE HCV ANTIBODY SCREEN IS CONSISTENT WITH NO HCV INFECTION, UNLESS RECENT INFECTION IS SUSPECTED OR OTHER EVIDENCE EXISTS TO INDICATE HCV INFECTION. EFFECTIVE FEBRUARY 12, 2021, THIS PANEL WILL BE MADE NON- ORDERABLE IT NO LONGER MEETS CLINICAL GUIDELINES FOR THE DETECTION OF HCV INFECTION. [facility] OFFERS HCV ANTIBODY WITH REFLEX TO QUANTITATIVE REAL-TIME PCR (300935) AND HCV ANTIBODY WITH REFLEX TO QUALITATIVE MAMADOU ([id number]) WHICH ALIGN WITH CURRENT GUIDELINES. Blood 02/02/2021 10:3 2 AM CDT Narrative REPLACED BY [facility] - 02/03/2021 7:09 AM CDT TESTING PERFORMED AT: [] [address], [address], PHONE: [phone], FINANCIAL RISK MANAGER: KAIN FIELDS, PHD Release to patient->Immediate us Aman Mark MD CHEMISTRY ORDERABLES Final Result REPLACED BY [facility] from Last 3 Months or Most Recently Relevant to Health Maintenance Insurance MEDICARE Care Teams Extractor Machine Operator Relationship Specialty Start Date End Date Kajal French, [facility] PCP - General Physician Spa Attendant 01/28/21 Aman Mark MD [address] [place] [phone] Consulting Physician Oncology 01/28/21
--- OUTSIDE RECORDS SUMMARY | 2024-11-08 08:08 | XMS_ITS | Encounter Summary ---
Author Organization [facility] Address [address] [place] [address] Phone Care Team Providers Care Telecom Billing Analyst Name Role Phone Kajal French Primary Care Provider [phone] Aman Mark MD Unavailable [phone] Reason for Visit * Reason Comments Medication Refill Encounter Details Date Type Department Care Team (Late st Contact Info) Description 02/05/2023 Refill [facility] [address] [place] [address] Aman Mark MD [address] [place] [phone] Medication Refill Social History Tobacco Use [...] Telephone Encounter - Marj Patricio RN - 02/07/2023 7:46 AM CDT Refill request from pharmacy. Please fill if appropriate. documented in this encounter Plan of Treatment Upcoming Encounters Date Type Department Care Team (Late st Contact Info) Description 01/24/2025 10:45 AM CDT Office Visit [facility] [address] [address] Aman Mark MD [address] [place] [phone] documented as of this encounter Visit Diagnoses Diagnosis Anemia, unspecified type documented in this encounter Additional Health Concerns Assessment Noted Time PHQ-9 Depression Total Score: 1 04/30/20 21 2:55 PM CDT documented as of this encounter Care Teams Telecom Billing Analyst Relationship Specialty Start Date End Date Kajal French, [place] PCP - General Physician Weapons System Instrument Mechanic 01/28/21 Aman Mark MD [address] [place] [phone] Consulting Physician Oncology 01/28/21 documented as of this encounter
--- OUTSIDE RECORDS SUMMARY | 2024-11-08 08:08 | XMS_ITS | Clinical Summary ---
Author Organization [address] Address [address] [place] [address] Care Team Providers Care Gyroscopic Instrument Tester Name Role Phone Kajal French Primary Care Provider [phone] Allergies Active Allergy Reactions Criticality Noted Date [...] meals, (No instructions reported), Reported on 04/03/2024 [employer]Touch Verio test strips strip Dx: E11.65 insulin [...] hyperglycemia, with long-term current use of insulin ([facility]) Inject 2 mg under the skin every 7 days 10 mL 3 4 Active dapagliflozin propanediol (Farxiga) 10 mg tabletIndication s:Type 2 diabetes mellitus with hyperglycemia, with long-term current use of insulin ([facility]) TAKE 1 TABLET BY MOUTH EVERY DAY 90 tablet 3 4 Active metFORMIN XR (GLUCOPHAGE XR) 500 mg 24 hr tabletIndication s:Type 2 diabetes mellitus with hyperglycemia, with long-term current use of insulin ([facility]) TAKE 1 TABLET TWICE A DAY 180 [...] barefoot. Assessment & Plan (10/22/2020 3:30 PM WIND TURBINE SERVICE TECHNICIAN): He is doing well using Omnipod. Attempting [...] Atorvastatin 40mg. Last lipid panel: 06/22/23 LDL=61, LY=449. Assessment & Plan (06/07/2023 11:39 AM CDT): Chronic problem. Controlled on current Atorvastatin 40mg. Last lipid panel: 02/24/23 LDL=55, SK=571. Assessment & Plan (02/24/2023 10:06 AM CDT): Chronic problem. Controlled on current Atorvastatin 40mg. Last lipid panel: 01/20/22 LDL=75, QH=585. Will update lipid panel today. Verified that he uses [facility]. Aware to check results/results letter in [facility]. Will contact by phone if needed. Assessment & Plan (10/28/2022 10:37 AM CDT): Chronic, well controlled Low fat Low cholesterol diet Exercise Continue statin therapy Atorvastatin Assessment & Plan (07/22/2022 10:38 AM WIND TURBINE SERVICE TECHNICIAN): Chronic problem. On statin therapy, no changes. Assessment & Plan (04/15/2022 10:58 AM CDT): Chronic problem. On statin therapy, no changes. Assessment & Plan (05/21/2021 1:01 PM CDT): LDL at goal Continue with Lipitor Assessment & Plan (01/06/2021 11:41 AM CDT): At goal on current medications. Continue statin therapy. Assessment & Plan (09/03/2020 2:23 PM WIND TURBINE SERVICE TECHNICIAN): Continue statin Assessment & Plan (05/01/2020 2:57 PM CDT): Continue statin Assessment & Plan (08/19/2019 2:26 PM WIND TURBINE SERVICE TECHNICIAN): Will check lipid panel Assessment & Plan [...] therapy Assessment & Plan (10/03/2018 10:12 AM WIND TURBINE SERVICE TECHNICIAN): Goal of treatment , LDL cholesterol less [...] therapy Assessment & Plan (07/11/2018 10:39 AM WIND TURBINE SERVICE TECHNICIAN): Goal of treatment , LDL cholesterol less [...] update MA/Cr today. Verified that he uses [employer]. Aware to check results/results letter in [facility]. Will contact by phone if needed. UTD [...] mychart. Aware to check results/results letter in [employer]. Will contact by phone if needed. UTD [...] Bydureon. Assessment & Plan (07/22/2022 10:44 AM WIND TURBINE SERVICE TECHNICIAN): Chronic problem, not at goal. Has been [...] settings Assessment & Plan (10/14/2020 3:34 PM WIND TURBINE SERVICE TECHNICIAN): Demonstrates appropriate ability to fill and insert infusion set. Understands concepts of basal vs. Bolus and is able to enter BG and carbs into pump. Has been provided with contact information for insulin pump automobile rental representative and how to reach our office [...] weeks. Assessment & Plan (09/03/2020 2:27 PM WIND TURBINE SERVICE TECHNICIAN): A1c 8.1. Hyperglycemia mostly d/t forgetting to [...] him. Assessment & Plan (09/14/2019 10:31 AM WIND TURBINE SERVICE TECHNICIAN): A1c 8.4. Not compliant with diet over [...] goal hba1c is under 7.0 to prevent penitentiary diabetes complications ( eye , kidney and [...] Metformin Assessment & Plan (10/03/2018 10:10 AM WIND TURBINE SERVICE TECHNICIAN): Your Hba1c today was: Lab Results Component Value Date HGBA1C 9.9 10/03/2018 meaning a 3 month average sugar of : 244 Your goal hba1c is under 7.0 to prevent penitentiary diabetes complications ( eye , kidney and [...] Farxiga. Assessment & Plan (07/11/2018 10:38 AM WIND TURBINE SERVICE TECHNICIAN): Your Hba1c today was: Lab Results Component Value Date HGBA1C 8.9 07/11/2018 meaning a 3 month average sugar of : Your goal hba1c is under 7.0 to prevent watermelon inspector diabetes complications ( eye , kidney and [...] 70/30 insulin by 5 units Stay on [facility] Assessment & Plan (06/06/2018 3:32 PM CDT): Your Hba1c today was: Lab Results Component Value Date HGBA1C 13.5 06/06/2018 meaning a 3 month average sugar of over : 300 Your goal hba1c is under 7.0 to prevent watermelon inspector diabetes complications ( eye , kidney and [...] goal hba1c is under 7.0 to prevent penitentiary diabetes complications ( eye , kidney and [...] Jose Antonio and follow. Schedule appointment with top lift compressor. Call me to let know where you go so I can send a referral. Given new meter Assessment & Plan (08/04/2017 10:49 AM WIND TURBINE SERVICE TECHNICIAN): A1c 8.3. No change to medication today. [...] time. Assessment & Plan (07/22/2022 10:37 AM WIND TURBINE SERVICE TECHNICIAN): Controlled on current medications, no changes. Assessment & Plan (04/15/2022 10:58 AM CDT): Controlled on current medications, no changes. Assessment & Plan (05/21/2021 1:02 PM CDT): BP at goal On Quinapril Check MA Assessment & Plan (01/06/2021 11:41 AM CDT): Controlled on current medications. Continue plan. Assessment & Plan (09/03/2020 2:23 PM WIND TURBINE SERVICE TECHNICIAN): Controlled on current medications. Continue plan. Assessment & Plan (08/19/2019 2:26 PM WIND TURBINE SERVICE TECHNICIAN): Controlled on current medications. Continue plan. Assessment [...] ARB Assessment & Plan (10/03/2018 10:11 AM WIND TURBINE SERVICE TECHNICIAN): Goal blood pressure is less than 140/85 Low salt diet recommended Daily aerobic exercise Continue current meds, including DENNIS-I or ARB Assessment & Plan (03/16/2018 4:32 PM CDT): Controlled on current medications. Assessment & Plan (02/14/2018 10:12 AM CDT): Goal blood pressure is less than 140/85 Low salt diet recommended Daily aerobic exercise Continue current meds, including DENNIS-I or ARB Assessment & Plan (11/13/2017 3:33 PM CDT): Controlled on current medications. Assessment & Plan (08/04/2017 10:50 AM WIND TURBINE SERVICE TECHNICIAN): Controlled on current medications. Assessment & Plan [...] Resolved Date Body mass index 40.0-44.9, adult ([facility]) 04/03/2024 04/03/2024 Class 3 severe obesity due [...] 02/24/2023 Assessment & Plan (07/22/2022 10:42 AM WIND TURBINE SERVICE TECHNICIAN): Not at goal, work on diet and [...] 4 Assessment & Plan (10/22/2020 3:29 PM WIND TURBINE SERVICE TECHNICIAN): Lower basal to 1.9 = 45.6 units TDB Bolus: IC 5, SF 20, T 100 AI 4 Assessment & Plan (10/14/2020 3:33 PM WIND TURBINE SERVICE TECHNICIAN): Insulin pump setting calculations as follows: Basal 2.0 units per hours = 48 units TDB Bolus: IC 5, SF 20, T 120 AI 4 BMI 40.0-44.9, adult 05/05/2017 023 Assessment & Plan (09/03/2020 2:23 PM WIND TURBINE SERVICE TECHNICIAN): Importance of following diet and exercising discussed. Assessment & Plan (05/01/2020 2:57 PM CDT): Importance of following diet and exercising discussed. Assessment & Plan (08/19/2019 2:27 PM WIND TURBINE SERVICE TECHNICIAN): Importance of following diet and exercising discussed. Pure hypercholesterolemia 09/07/2013 Overview (11/19/2016): PURE HYPERCHOLESTEROLEM Assessment & Plan (11/13/2017 3:33 PM CDT): Continue simvastatin Assessment & Plan (08/04/2017 10:50 AM WIND TURBINE SERVICE TECHNICIAN): Continue statin Assessment & Plan (05/05/2017 12:13 [...] RD. Assessment & Plan (08/04/2017 10:50 AM WIND TURBINE SERVICE TECHNICIAN): Needs to reduce portions especially of sweets. Holiday strategies discussed. Surgical History Surgery Date Site/Laterality Comments OTHER SURGICAL HISTORY sleep apnea: cpap OTHER SURGICAL HISTORY Hernia, inguinal right: Hernia repair, inguinal CHOLECYSTECTOMY Cholecystectomy HERNIA REPAIR Hernia repair OTHER SURGICAL HISTORY Hernia, abdominal, left: abdominal hernia repair OTHER SURGICAL HISTORY Hernia, abdominal - right: abdominal hernia repair Medical History Medical History Date Comments Sleep apnea sleep apnea Hypertension hypertension Diabetes mellitus (HCC) diabetes mellitus Hyperlipidemia hyperlipidemia Adiposity obesity Hx Other Medical Restless Leg Sy ndrome Hx Other Medical Hernia, inguina l right Hx Other Medical Hernia, abdomin al, left Hx Other Medical Hernia, abdomin al - right Insulin pump status 10/14/2020 Family History Medical History Relation Name Comments Coronary artery disease Father Sheree nary artery disease; Heart attack Father Myocardial infa rction; Diabetes type II Maternal Grandmother Onelia dee -Type II; Cause of : Diabetes -Type II Alzheimer's disease Mother Alzheime r's Disease; Coronary artery disease Mother Sheree agrciay artery disease; Cause of : Coronary artery disease Diabetes type II Mother's Sister 2 Diabet es -Type II; Cause of : Diabetes -Type II Coronary artery disease Paternal Grandfather Coronary artery disease; Cause of : Coronary artery disease Coronary artery disease Paternal Grandmother Coronary artery disease; Cause of : Coronary artery disease Relation Name Status Comments Father Alive Maternal Grandmother Mother (Age 84) Mother's Sister 1 (Age 70) Mother's Sister 2 Paternal Grandfather (Age 70) Paternal Grandmother (Age 70) Social History Tobacco Use Types Packs/Day Years [...] on file Legal Sex Male 10:32 AM WIND TURBINE SERVICE TECHNICIAN Gender Identity Not on file Sexual Orientation Not on file Obstetrics History Last Filed Vital Signs Vital Sign Reading [...] 04/03/2024 10:26 AM CDT Plan of Treatment Health Maintenance Due Date Last Done Comments Colon Cancer Screening-Colonoscopy 1955 Fall Risk Assessment 1955 Hepatitis C Screening 1955 Hepatitis B Screening 1972 Well Visit 65+ 2019 DTaP/Tdap/Td Vaccine (1 - Tdap) 06/19/2021 Depression Screening 11/05/2022 11/05/2021, 03/03/2021, 01/06/2021, Additional history exists Covid-19 Vaccine (2023-2 5 season) 2024 07/25/2021, 12/30/2020, 12/04/2020 Pneumococcal vaccine 65+ (3 of 3 - PCV20 or PCV21) 06/04/2024 06/04/2019, 12/23/2017, 04/03/2016 Foot Exam 06/07/2024 06/07/2023, 09/0 08/2021, 01/06/2021, Additional history exists Lipid Panel 06/22/2024 06/22/2023, 110 03/2023, 02/24/2023, Additional history exists eGFR 07/01/2024 07/01/2023 Hemoglobin A1C 10/04/2024 04/03/2024, 04/0 11/2023, 06/07/2023, Additional history exists Dilated Eye Exam 10/05/2024 10/05/2023, , 11/07/2018, Additional history exists Albumin Creatinine Ratio, Urine 04/03/2025 04/03/2024, 02/24/2023, 11/05/2021, Additional history exists Zoster Vaccine Completed 07/24/2018, 12/23/2017 Abdominal Aortic Aneurysm (A AA) Screen Completed 11/15/2022, 04/13/2019 Influenza Vaccine Completed 03/20/2024, , 04/20/2016, Additional history exists Procedures Procedure Name Priority Date/Time Associated Diagnosis Comments ALBUMIN CREATININE RATIO, URINE Routine 04/03/2024 11:41 AM CDT Type 2 diabetes mellitus with hyperglycemia, with long-term current use of insulin (HCC) POCT HEMOGLOBIN A1C Routine 04/03/2024 1 0:30 AM CDT Type 2 diabetes mellitus with hyperglycemia, with long-term current use of insulin (HCC) HM DIABETES EYE EXAM Routine 10/05/2023 8:53 AM WIND TURBINE SERVICE TECHNICIAN BASIC METABOLIC PANEL Routine 07/01/2023 10:26 AM WIND TURBINE SERVICE TECHNICIAN LIPID PANEL Routine 06/22/2023 12:03 PM WIND TURBINE SERVICE TECHNICIAN from Last 3 Months or Most Recently Relevant to Health Maintenance Results * Albumin Creatinine Ratio, Urine (04/03/2024 11:41 AM CDT) Pathologist [facility] Albumin Ur 12.6 mg/L Comment: Interpretive Data No reference range established. Current interpretive data was last revised 2018. Creatinine Ur 106.6 mg/dL JOYCE Comment: Interpretive Data No reference range established. Current interpretive data was last revised 2018. Albumin Creatinine Ratio, Ur 12 1 - 29 mg/g JOYCE Urine 04/03/2024 11:4 1 AM CDT 04/03/2024 8:22 PM CDT Ashley Yoder NP LAB URINE ORDERABLES Michelle l Result JOYCE [id number] Department [place] [address] * (ABNORMAL) POCT hemoglobin A1c (04/03/2024 10:30 AM CDT) [facility] [address] Hemoglobin A1C, POC 6.1 4.0 - 5.6 % Blood 04/03/2024 10:3 0 AM CDT Ashley Yoder NP POINT OF CARE TEST ORDERA BLES Final Result * (ABNORMAL) DIABETES EYE EXAM (10/05/2023 8:53 AM WIND TURBINE SERVICE TECHNICIAN) Historical Provider HEALTH MAINTENANCE Final Result * (ABNORMAL) Basic metabolic panel (07/01/2023 10:26 AM WIND TURBINE SERVICE TECHNICIAN) Pathologist [facility] SCRIBED Sodium 136 136 - 145 mmol/L [...] mg/dl EXTERNAL LAB SCRIBED eGFR in NonAfrican [place] 40 >90 - NA EXTERNAL LAB Blood 07/01/2023 10:2 6 AM WIND TURBINE SERVICE TECHNICIAN Historical Provider LAB BLOOD ORDERABLES Edit ed Result - Final EXTERNAL LAB * (ABNORMAL) Lipid panel (06/22/2023 12:03 PM WIND TURBINE SERVICE TECHNICIAN) SCRIBED Cholesterol, Total 135 <200 - NA EXTERNAL LAB SCRIBED HDL 42 >40 - NA EXTERNAL LAB SCRIBED LDL 61 <100 - NA EXTERNAL LAB SCRIBED Triglycerides 162 <150 - NA EXTERNAL LAB Blood 06/22/2023 12:0 3 PM WIND TURBINE SERVICE TECHNICIAN Historical Provider LAB BLOOD ORDERABLES Edit ed Result - Final EXTERNAL LAB from Last 3 Months or Most Recently Relevant to Health Maintenance Insurance [facility]ICARE [facility] HEALTH PLAN [facility] Care Teams Gyroscopic Instrument Tester Relationship Specialty Start Date End Date Kajal French PA PCP - General Physician Commercial Singer 09/03/20
[2024-12-03 09:46] VITALS: BMI 44.4
--- NOTE | 2024-12-03 09:46 | P.SLEEP_ITS ---
Sleep Study Date of Study: 11/08/24 Ordering Provider: Spencer Dickinson, PLATE PUT IN WORKER Interpreting Physician: Elyssa Novak, Sleep Study Type: Polysomnogram Height: 1.73 m Weight: 132.449 kg Body Mass Index: 44.4 Neck Circumference (inches): 20 [place]: 17 Reason for Sleep Study Daytime hypersomnia Sleep History The patient is a 69-year-old male that had a sleep study ordered by his ENT group for evaluation of sleep apnea. The patient was previously diagnosed with sleep apnea in the past and has been on CPAP therapy. The patient denies awakening from sleep short of breath. He denies awakening at night with hear tburn, belching or cough. He occasionally snores and is frequently loud enough that others complain. He rarely has trouble sleeping when he has a cold. He denies waking up gasping for air throughout the night. He denies having breathing problems at night observed by himself or others. He denies sweating excessively at night. He denies having heart palpitations or irregular heartbeats during the night. He constantly falls asleep during the day but rarely while driving. He denies cataplexy. He occasionally has trouble at school or work due to sleepiness. He rarely feels unable to move waking up or falling asleep. He denies hypnagogic and hypnopompic hallucinations. He denies feeling afraid of going to sleep. He occasionally has nightmares. He occasionally remembers his dreams. He occasionally has thoughts racing through his mind. He rarely feels sad, depressed or anxious. He occasionally has muscular tension. He denies noticing parts of his body jerk. He occasionally k icks during the night. He occasionally has crawling and aching feelings in his legs and occasionally has leg pain during night. He occasionally grinds his teeth during sleep but never awakens with morning jaw pain. He is rarely bothered by pain during the day and occasionally awakened by pain during the night. He occasionally wakes up feeling stiff in the morning. He occasionally wakes up with sore or achy muscles. He occasionally wakes up with pain in the neck, spine and other joints. He goes to bed at 8:00 p.m. on weekdays and at 10:00 p.m. on the weekends. He is able to fall asleep relatively quickly. He wakes up 1-2 times throughout the night to urinate is able to fall back asleep within 5-10 minutes. He wakes up at 4:30 a.m. on weekdays and at noon on the weekends. He typically gets 6 hours of sleep per night. He will stay in bed for 15 minutes after waking up in the morning. He currently lives with his . He does have a split shift work schedule. He will consume caffeinated beverages within 2 hours of bedtime. He denies engaging in physical exercise before bedtime. He will watch television before falling asleep. He will take naps in afternoon or the evening but they are not refreshing. He consumes 5 caffeinated beverages per day. He quit smoking cigarettes 28 years ago. He denies alcohol and recreational drug use. [facility] Past Medical History Medical History Cataracts, bilateral Gout Arthritis Hernia HLD (hyperlipidemia) HTN (hypertension) Chronic kidney disease Insulin dependent diabetes mellitus Surgical History Surgical History History of hernia surgery History of cholecystectomy Family History Family History Mother Family history of Alzheimer's disease Family history of congestive heart failure Father Acute myocardial infarction Other Diabetes mellitus Family history of malignant neoplasm Hypertension Social History Social History Smoking packs per day: 2 Smoking cigarettes per day: 40.0 Years smoked: 25 Smoking pack-years: 50.00 Smoking status: Former smoker Tobacco type: cigarettes Smoking end date: 08/15/03 Alcohol intake: current Do You Feel Safe in your Home?: Yes Lack of Transportation: No Lack of Food: Never True Current Housing: I Have Housing Concerned About Future Housing: No Difficulty Paying Gas/Electric Bills: No Difficulty Paying for Meds: No Currently Unemployed: No Education: Associate Degree Difficulty w/ Childcare or Family Care: No Spiritual care concerns: No Medications Home Medications ?Medication ?Instructions ?Recorded ?Confirmed ?Type allopurinol 300 mg tablet 300 mg DAILY 02/05/24 02/06/24 History aspirin 81 mg chewable tablet 81 mg PO DAILY 02/05/24 02/06/24 History atorvastatin 40 mg tablet 40 mg HS 02/05/24 02/06/24 History cyanocobalamin (vitamin B-12) 5,000 mcg PO DAILY 02/05/24 02/06/24 History 1,000 mcg tablet (Vitamin B-12) dapagliflozin propanediol 10 mg 10 mg DAILY 02/05/24 02/06/24 History tablet (Farxiga) duloxetine 60 mg capsule,delayed 60 mg PO DAILY 02/05/24 02/06/24 History release exenatide microspheres 2 mg/0.65 2 mg subcut WEEKLY 02/05/24 02/06/24 History mL subcutaneous pen injector gabapentin 300 mg capsule 300 mg TID 02/05/24 02/06/24 History hydrochlorothiazide 25 mg tablet 25 mg DAILY 02/05/24 02/06/24 History insulin glargine-yfgn 100 unit/mL 30 unit subcut HS 02/05/24 02/06/24 History (3 mL) subcutaneous pen (Semglee (insulin glargine-yfgn) Pen) insulin lispro 100 unit/mL See Rx Instructions .Route .COMPLEX 02/05/24 02/06/24 History subcutaneous solution (Humalog U-100 Insulin) lisinopril 20 mg tablet 20 mg PO DAILY 02/05/24 02/06/24 History metformin 500 mg tablet,extended 500 mg PO BID 02/05/24 02/06/24 History release 24 hr tamsulosin 0.4 mg capsule 0.4 mg PO DAILY 02/05/24 02/06/24 History apixaban 5 mg tablet (Eliquis) 5 mg PO Q12HR #60 tabs 02/09/24 Rx apixaban 5 mg tablet (Eliquis) 10 mg (2 x 5 mg) PO Q12HR 4 days 02/09/24 Rx #16 tabs Sleep Procedure A full night polysomnogram using the [employer] multi-channel system recorded the standard physiologic parameters including EEG, EOG, submentalis EMG, anterior tibialis EMG, EKG, body position, nasal and oral airflow using n johnathan pressure sensor and thermistor.? Respiratory parameters of chest and abdominal movements were recorded with Respiratory Inductance Plethysmography belts. Oxygen saturation was recorded by pulse oximetry. Video monitoring was also performed. Sleep stages, periodic limb movements, and EEG arousals were scored in 30 second epochs according to the criteria of the AASM Scoring Manual. The Apnea-Hypopnea Index was calculated using CMS guidelines for definition of hypopnea with 4% O2 desaturations while scoring respiratory events. Sleep Architecture The total recording time was 506.5 minutes.? The total sleep time was 467.5 minutes. Sleep latency was 22.0 minutes. REM latency was 5.0 minutes. Sleep efficiency was 92.3%. The patient had 13 awakenings for an awakening index of 1.7. Wake after sleep onset time was 17.0 minutes. The patient spent 11.0 minutes, 2.4% of total sleep time in Stage N1. The patient spent 418.0 minutes, 89.4% in Stage N2. The patient spent 2.0 minutes, 0.4% in Stage N3. The patient spent 36.5 minutes, 7.8% in Stage REM sleep. Respiratory Analysis The patient had 213 hypopneas, 149 obstructive apneas and 2 central apneas for an overall Apnea Hypopnea Index of 46.7. The REM Apnea Hypopnea Index was 78.9. The NREM Apnea Hypopnea Index was 44.8. The patient had a Central Apnea Hypopnea Index of 0.3. There was no evidence of [place] Respirations. Arousals There were 156 total arousals for an arousal index of 20.0. There were 101 spontaneous arousals for an index of 13.0. There were 38 arousals due to respiratory events for an index of 4.9. There were 9 arousals due to periodic limb movements for an index of 1.2.? There were 10 arousals due to isolated limb movements for an index of 1.3. Periodic Limb Movements The patient had 46 isolated limb movements with an index of 5.9. The patient had 100 periodic limb movements with an index of 12.8. Patient had a total of 146 limb movements with a total limb movement index of 18.7. Oximetry Data The patient had an average oxygen saturation of 91.2% in sleep with a minimum oxygen saturation of 71.0% and a maximum oxygen saturation of 97.0%. The patient had 342 oxygen desaturations that were 4% or greater resulting in an Oxygen Desaturation Index of 43.9.? The patient spent 53.5 minutes, 10.6% of total sleep time with an oxygen saturation below 88%. Snoring Profile Moderate snoring was present throughout the study. Cardiac Profile The EKG showed normal sinus rhythm. No arrhythmias or premature beats were seen. The patient had an average pulse rate of 66.5 bpm with a minimum pulse of rate of 55.0 bpm and a maximum pulse rate of 85.0 bpm.? EEG Profile No signs of seizure activity seen. Assessment and Plan Assessment and Plan (1) BENJIE (obstructive sleep apnea): Code(s): G47.33 - Obstructive sleep apnea (adult) (pediatric) Status: Acute Assessment and Plan: The patient had an overall AHI of 46.7 with desaturation down to 71%. This is consistent with severe sleep apnea. The patient spent 53.5 minutes with an oxygen saturation less than 88%. I recommend that the patient have a CPAP titration study with use of a hypnotic to ensure we obtain enough sleep data and find an optimal pressure setting. Data The data obtained during this sleep study is adequate for interpretation. Certification This sleep study has been reviewed by a board certified sleep medicine physician.
== END 2024-11-09 07:46 | disposition home or self-care (01) ==
LOC: ANHCSM 08:00
PROVIDERS: PCP Physician Assistant; Visit Provider Nurse Practitioner Family
DX: G47.33 Obstructive sleep apnea (adult) (pediatric) (principal)
CPT/HCPCS: 95810

== ENCOUNTER 2025-08-10 13:20 | Emergency (ER) | payer MEDICARE, OTHER, SELFPAY ==
[2025-08-10 13:52] VITALS: BP 133/65; PULSE 84; RESP 16; TEMP 36.2; O2SAT 98
--- NOTE | 2025-08-10 14:14 | ED.URI ---
HPI - URI/Sore Throat General Chief Complaint: Upper Respiratory Infection Stated Complaint: congestion Time Seen by Provider: 08/10/25 14:00 Source: patient Mode of arrival: ambulatory Limitations: no limitations History of Present Illness HPI Narrative: Esteban is a 70-year-old male patient presenting to the clinic today with complaints of sinus congestion, sinus pressure, and productive cough for over 1 week. He reports he is blowing out green and yellow nasal drainage. Denies any fevers, chills, body aches. Denies any chest pain or shortness of breath. Has taken DayQuil for his symptoms. Related Data Home Medications ?Medication ?Instructions ?Recorded ?Confirmed ?Last Taken ?Type allopurinol 300 mg tablet 300 mg DAILY 02/05/24 02/06/24 Unknown History aspirin 81 mg chewable tablet 81 mg PO DAILY 02/05/24 08/10/25 Unknown History atorvastatin 40 mg tablet 40 mg HS 02/05/24 02/06/24 Unknown History cyanocobalamin (vitamin B-12) 5,000 mcg PO DAILY 02/05/24 08/10/25 Unknown History 1,000 mcg tablet (Vitamin B-12) dapagliflozin propanediol 10 mg 10 mg DAILY 02/05/24 02/06/24 Unknown History tablet (Farxiga) duloxetine 60 mg capsule,delayed 60 mg PO DAILY 02/05/24 08/10/25 Unknown History release exenatide microspheres 2 mg/0.65 2 mg subcut WEEKLY 02/05/24 08/10/25 Unknown History mL subcutaneous pen injector gabapentin 300 mg capsule 300 mg TID 02/05/24 02/06/24 Unknown History hydrochlorothiazide 25 mg tablet 25 mg DAILY 02/05/24 02/06/24 Unknown History insulin glargine-yfgn 100 unit/mL 30 unit subcut HS 02/05/24 08/10/25 Unknown History (3 mL) subcutaneous pen (Semglee (insulin glargine-yfgn) Pen) insulin lispro 100 unit/mL See Rx Instructions .Route .COMPLEX 02/05/24 08/10/25 02/05/24 History subcutaneous solution (Humalog U-100 Insulin) lisinopril 20 mg tablet 20 mg PO DAILY 02/05/24 08/10/25 Unknown History metformin 500 mg tablet,extended 500 mg PO BID 02/05/24 08/10/25 Unknown History release 24 hr tamsulosin 0.4 mg capsule 0.4 mg PO DAILY 02/05/24 08/10/25 Unknown History Allergies Allergy/AdvReac Type Severity Reaction Status Date / Time celecoxib (From Celebrex) Allergy Intermediate Rash Verified 08/10/25 14:15 morphine AdvReac Unknown Agitated Verified 08/10/25 14:15 Review of Systems Review of Systems: Pertinent positives per HPI. Patient denies any fever, chills, rash, headache, visual changes, dizziness, shortness of breath, chest pain, palpitations, nausea, vomiting, diarrhea, constipation, abdominal pain, or any urinary issues. [facility] Past Medical History Medical History Cataracts, bilateral Gout Arthritis Hernia HLD (hyperlipidemia) HTN (hypertension) Chronic kidney disease Insulin dependent diabetes mellitus Surgical History Surgical History History of hernia surgery History of cholecystectomy Family History Family History Mother Family history of Alzheimer's disease Family history of congestive heart failure Father Acute myocardial infarction Other Diabetes mellitus Family history of malignant neoplasm Hypertension Social History Social History Smoking packs per day: 2 Smoking cigarettes per day: 40.0 Years smoked: 25 Smoking pack-years: 50.00 Smoking status: Former smoker Tobacco type: cigarettes Smoking end date: 08/15/03 Alcohol intake: current Lack of Transportation: No Lack of Food: Never True Current Housing: I Have Housing Concerned About Future Housing: No Difficulty Paying Gas/Electric Bills: No Difficulty Paying for Meds: No Currently Unemployed: No Education: Associate Degree Difficulty w/ Childcare or Family Care: No Spiritual care concerns: No Comments At the time of my signature, I reviewed and agree with the nursing past medical, surgical, social, and family history. There is no relevant family history pertinent to the patient complaint. Exam Narrative: General: Well-developed, morbidly obese, in no apparent distress Head: Normocephalic, atraumatic Eyes: Pupils equally round and reactive to light bilaterally, EOM intact, sclera and conjunctive clear, no discharge, lids normal Ears: TMs intact and clear, ear canals clear, no drainage, grossly hearing normal. Nose: Nares patent, yellow nasal discharge, moderate inflammation, maxillary sinus tenderness. Mouth: Oral pharynx without lesions or masses, good dentition, MMM. Postnasal drip Neck: Supple, trachea midline, no enlargement of anterior or posterior cervical nodes, no thyroid masses or goiter palpable. Cardio: Regular rate and rhythm, s1 and s2 normal, no murmur appreciated. Resp: Clear to auscultation bilaterally, no rhonchi, rales, wheezing or rubs Course Course Level of Care: Express Care Visit Vital Signs Vital signs: Vital Signs Temperature 36.2 C L 08/10/25 13:52 Pulse Rate 84 08/10/25 13:52 Respiratory Rate 16 08/10/25 13:52 Blood Pressure 133/65 08/10/25 13:52 Pulse Oximetry 98 08/10/25 13:52 Oxygen Delivery Room Air 08/10/25 13:52 Temperature 36.2 C L 08/10/25 13:52 Pulse Rate 84 08/10/25 13:52 Respiratory Rate 16 08/10/25 13:52 Blood Pressure 133/65 08/10/25 13:52 Pulse Oximetry 98 08/10/25 13:52 Oxygen Delivery Room Air 08/10/25 13:52 MDM MDM Narrative Medical decision making narrative: At the time of visit patient is resting comfortably on the exam table. Patient appears to be nontoxic. Complaints of sinus congestion, sinus pressure, and productive cough for over 1 week. He reports he is blowing out green and yellow nasal drainage. Denies any fevers, chills, body aches. Denies any chest pain or shortness of breath. Has taken DayQuil for his symptoms. On exam patient has bilateral TMs intact and clear, yellow nasal drainage, moderate anterior turbinate inflammation, maxillary sinus tenderness, oropharynx red with postnasal drip, lung sounds are clear, heart rates regular rate and rhythm. Plan: I suspect patient has sinusitis. Prescription for Augmentin was sent to the pharmacy. Supportive measures were discussed with the patient and they voiced understanding discharge instructions and agrees to treatment plan. Return precautions reviewed Differential Diagnosis Differential Diagnosis: Differential diagnostic considerations for upper respiratory infection include upper respiratory infection, croup, otitis media, sinusitis, viral infection, bronchitis, influenza, pharyngitis, strep, uvulitis. Discharge Plan Discharge Clinical Impression: Acute bacterial rhinosinusitis Patient Disposition: Home Condition: Stable Instructions: Antibiotic Form, Rhinosinusitis (ED) Additional Instructions: Take prescription medications only as prescribed-Augmentin Increase fluids and stay well hydrated May take Tylenol or motrin as directed on bottle for pain/fever May use Flonase 1 spray in each nare daily May take OTC antihistamines such as Zyrtec or Claritin daily as directed on bottle May apply Vicks vapor rub to chest to open sinuses Sinus rinses for congestion Cepacol spray, cough drops, throat lozenges, warm tea with honey/lemon, gargle salt water to soothe throat BRAT diet for diarrhea Clear liquids x 24 hours then advance as tolerated for nausea/vomiting Go to the ED if you develop a worsening in your condition- high fever not controlled by Tylenol or Motrin, dehydration, weakness, lethargy, shortness of breath, or chest pain. Follow up with your PCP in 3-5 days if symptoms persist. Patient Language: Austrian Prescriptions: New amoxicillin-pot clavulanate 875-125 mg tablet 1 tablet PO Q12H 7 Days Qty: 14 0RF No Action atorvastatin 40 mg tablet 40 mg HS lisinopril 20 mg tablet 20 mg PO DAILY tamsulosin 0.4 mg capsule 0.4 mg PO DAILY gabapentin 300 mg capsule 300 mg TID allopurinol 300 mg tablet 300 mg DAILY hydrochlorothiazide 25 mg tablet 25 mg DAILY insulin lispro [Humalog U-100 Insulin] 100 unit/mL solution See Rx Instructions .ROUTE .COMPLEX Rx Instructions: Sliding Scale metformin 500 mg tablet extended release 24 hr 500 mg PO BID duloxetine 60 mg capsule,delayed release(DR/EC) 60 mg PO DAILY dapagliflozin propanediol [Farxiga] 10 mg tablet 10 mg DAILY insulin glargine-yfgn [Semglee(insulin glarg-yfgn)Pen] 100 unit/mL (3 mL) insulin pen 30 unit SUBCUT HS cyanocobalamin (vitamin B-12) [Vitamin B-12] 1,000 mcg Tablet 5,000 mcg PO DAILY exenatide microspheres 2 mg/0.65 mL Pen Injector 2 mg SUBCUT WEEKLY Rx Instructions: Wednesdays aspirin 81 mg Tablet,Chewable 81 mg PO DAILY Eliquis 5 mg Tablet 10 mg PO Q12HR 4 Days Qty: 16 0RF Eliquis 5 mg Tablet 5 mg PO Q12HR Qty: 60 0RF Rx Instructions: start on 02/14/24 after finishing the 10mg twice daily dosing. Follow-up/Referrals: Gerda,Latosha Marcial APRN [Primary Care Provider, [facility]] Time of Disposition: 14:16 Quality NIHSS Nursing Documentation ED NIHSS nursing documentation: reviewed/agree
== END 2025-08-10 14:24 | disposition home or self-care (01) ==
PROVIDERS: Emergency Provider Nurse Practitioner Family; PCP Nurse Practitioner Family
DX: J01.90 Acute sinusitis, unspecified (principal); I12.9 Hypertensive chronic kidney disease with stage 1 through stage 4 chronic kidney disease, or unspecified chronic kidney disease; E11.22 Type 2 diabetes mellitus with diabetic chronic kidney disease; N18.9 Chronic kidney disease, unspecified; Z79.4 Long term (current) use of insulin; Z79.84 Long term (current) use of oral hypoglycemic drugs; E78.5 Hyperlipidemia, unspecified; M19.90 Unspecified osteoarthritis, unspecified site; M10.9 Gout, unspecified; H26.9 Unspecified cataract; Z79.82 Long term (current) use of aspirin
CPT/HCPCS: 99213; G0463